=== PATIENT | female | born 1985 | race Caucasian/White ===

== ENCOUNTER 2017-05-05 18:55 | Observation (INO) | payer OTHER ==
[2017-05-05 22:11] LABS: ALT 30 U/L (7-52); Albumin 4.4 g/dL (3.2-5.2); Alkaline Phosphatase 101 U/L (34-104); BUN/Creatinine Ratio 11.5 (8-20); Blood Urea Nitrogen 7 mg/dL (6-24); CO2 Carbon Dioxide 16 mmol/L (22-32); Calcium 9.8 mg/dL (8.6-10.3); Chloride 105 mmol/L (101-111); EGFR African American 145.3 (>60); Globulin 4.5 g/dL (2-4); Glucose 92 mg/dL (70-100); Sodium 131 mmol/L (133-145); Total Protein 8.9 g/dL (6.4-8.9)
[2017-05-05 22:16] LABS: Anion Gap 10 mmol/L (2-11)
[2017-05-05 23:44] LABS: Hematocrit 42 % (35-47); Hemoglobin 14.2 g/dl (12.0-16.0); Mean Corpuscular HGB Conc 34 g/dl (31-36); Mean Corpuscular Hemoglobin 30 pg (27-31); Mean Corpuscular Volume 88 fL (80-97); Mean Platelet Volume 9 um3 (7.4-10.4); Red Cell Distribution Width 14 % (10.5-15); White Blood Count 13.6 10^3/ul (3.5-10.8)
[2017-05-06] MEDS ORDERED: Piperacillin/Tazobac ADVAN(*) 3.375 GM in NS 0.9% 100 ML* 100 ML IVPB ONE (00:19)
[2017-05-06] MEDS ORDERED: Ibuprofen TAB* 800 MG PO PRN (00:20)
[2017-05-06] MEDS ORDERED: Acetaminophen TAB* 325 MG PO PRN (00:20)
[2017-05-06] MEDS ORDERED: Nicotine Inhaler* 10 MG AMP INH PRN (00:27)
[2017-05-06] MEDS ORDERED: NS 0.9% 1000 ML* 1,000 ML IV SCH (00:30)
[2017-05-06] MEDS ORDERED: Vancomycin per Pharmacy* NOTE FOLLOW UP PRN (00:42)
[2017-05-06] MEDS ORDERED: Zosyn per Pharmacy* NOTE FOLLOW UP SCH (01:00)
[2017-05-06] MEDS ORDERED: Potassium Chlor TAB* 10 MEQ TAB.ER PO ONE (01:04)
[2017-05-06] MEDS ORDERED: Vancomycin(*) 1,250 MG in NS 0.9% 250 ML* 250 ML IVPB ONE (01:30)
--- NOTE | 2017-05-06 02:42 | HP ---
ADDENDUM NOW INCLUDED ON THIS REPORT CC: Dr. Salgado; Dr. Hussein * HISTORY AND PHYSICAL: DATE OF ADMISSION: 05/06/17 PRIMARY CARE PROVIDER: Dr. Salgado. CHIEF COMPLAINT: Left arm abscess. HISTORY OF PRESENT ILLNESS: Nelly Castellanos is a 32-year-old female with history of IV drug use who has been clean for several months now. She is on Suboxone daily program from one of the local step programs. She stated that she used cocaine ones 8 days ago and she developed an abscess. She has not been afebrile, but the abscess kept on to evolve and currently is very tender and painful for the patient. It is localized in the left antecubital fossa. The ultrasound was performed showed an abscess of approximately 4 cm in diameter. The surgeon was notified about the patient's admission from the ED. The patient is going to be admitted for incision and drainage of the abscess. PAST MEDICAL HISTORY: 1. History of drug use as mentioned above, currently on Suboxone. 2. History of degenerative disk disease and chronic lower back pain. 3. Status post cholecystectomy. 4. Tonsillectomy and adenoidectomy. 5. History of 3 C-sections and tubal ligation in the past. MEDICATIONS: Include: 1. Suboxone 24 mg daily. 2. Tizanidine 2 mg on a p.r.n. basis. ALLERGIES: No known drug allergies. FAMILY HISTORY: Positive for father who of heart attack at the age of 53 and mother who of uterine cancer at the age of 60. SOCIAL HISTORY: The patient smokes less than a pack a day. She denies any alcohol use. She used cocaine last 8 days ago. She is on Suboxone prescribed. She lives with her boyfriend, her niece, and niece's boyfriend. She stated that she has not been to seen Dr. Salgado her primary care provider within the past year because she was in [facility]. REVIEW OF SYSTEMS: Positive for severe pain in left antecubital fossa. All the remaining 12 systems were reviewed with the patient and were otherwise negative apart from the chronic problems with lower back pain. PHYSICAL EXAMINATION GENERAL: The patient is a very pleasant 32-year-old female who is in pain and crying during my evaluation due to the pain in the left arm. The patient otherwise is in no acute distress. She is alert, awake, and oriented x3. VITAL SIGNS: Blood pressure of 166/100, heart rate 89 and regular, respiratory rate 18, oxygen saturation 100% on room air, temperature 97.6. HEENT: Head: Atraumatic, normocephalic. Eyes: Pupils are equal, reactive to light and accommodation. Oropharynx clear. Mucosa moist. NECK: Supple. No JVD and no bruits bilaterally. RESPIRATORY: Clear to auscultation bilaterally. CARDIOVASCULAR: Regular rate and rhythm. No murmur. ABDOMEN: Soft and nontender. Bowel sounds are present in all 4 quadrants. EXTREMITIES: There is no edema in bilateral lower extremities. There is no clubbing or cyanosis. Pulses are +2 bilaterally. Left arm right above the antecubital fossa, the patient has an area of approximately 10 x 15 cm of fluctuation and localized abscess with mild surrounding erythema of cellulitis. NEURO EVALUATION: Speech clear. Cranial nerves II through XII grossly intact. Motor strength is 5/5 bilaterally. DIAGNOSTIC STUDIES/LAB DATA: White blood cell count of 13.6, hemoglobin of 14.2, hematocrit of 42, and platelets of 391. Sodium was 131, potassium 3.4, chloride 105, carbon dioxide 16, BUN 7, creatinine 0.6. Liver function tests were unremarkable. Soft tissue ultrasound of the left antecubital fossa, the preliminary report shows "complex fluid collection on the left antecubital fossa of 4.8 x 3.1 x 3.8 cm, lobulated margins. Hyperemia surrounding collection. Debris within the abscess." ASSESSMENT AND PLAN: 1. A 32-year-old female with history of IV drug use, presents with an abscess of the left antecubital fossa after cocaine use. The patient is going to be placed on vancomycin and Zosyn and await surgical treatment in the morning. The patient is also going to be placed on gentle intravenous hydration. 2. In regards to her history of chronic opioid use, the patient is going to be continued on Suboxone at 24 mg which she usually takes at home. 3. For DVT prophylaxis, the patient is going to be placed on heparin subcutaneously. 4. The patient's code status is full and her surrogate is her boyfriend whose name is Sal Belle, phone number is [phone]. TIME SPENT: Approximately 62 minutes were spent on admission of this patient, more than half of that time was spent [id number] with the patient during the interview and physical exam. ADDENDUM: Please note that the patient just recalled that she had an allergic reaction to PENICILLIN. Due to that, Zosyn is going to be discontinued and the patient is going to be placed on intravenous clindamycin. [id number]/CPS #: [id number]/CPS #: [id number] MTDCelestina
[2017-05-06] MEDS ORDERED: Piperacillin/Tazobac (*) 3.375 GM BAG IVPB ONE (02:45)
--- NOTE | 2017-05-06 02:50 | HP ---
HISTORY AND PHYSICAL: ADDENDUM: Please note that the patient just recalled that she had an allergic reaction to PENICILLIN. Due to that, Zosyn is going to be discontinued and the patient is going to be placed on intravenous clindamycin. [id number]/[facility] #: [id number] MTDD
[2017-05-06] MEDS: Buprenorphine/Naloxone 8-2 MG SL TAB* 1 TAB PO SCH ×3 (03:10→08:48)
[2017-05-06] MEDS: tiZANidine TAB* 2 MG PO PRN ×2 (03:12→10:28)
[2017-05-06 04:06] LABS: Hematocrit 41 % (35-47); Hemoglobin 13.8 g/dl (12.0-16.0); Mean Corpuscular HGB Conc 33 g/dl (31-36); Mean Corpuscular Hemoglobin 30 pg (27-31); Mean Corpuscular Volume 88 fL (80-97); Mean Platelet Volume 9 um3 (7.4-10.4); Red Blood Count 4.67 10^6/ul (4.0-5.4); Red Cell Distribution Width 14 % (10.5-15); White Blood Count 13.7 10^3/ul (3.5-10.8)
[2017-05-06] MEDS: Clindamycin 600 MG IVPREMIX(* 600 MG/50 ML SDV IV SCH ×2 (05:20→14:46)
[2017-05-06] MEDS ORDERED: Heparin VIAL(*) 5000 UNITS/ML VIAL (FIVE THOUSAND) SUBCUT SCH (06:00)
[2017-05-06 06:06] LABS: Urine Bacteria Absent (Absent); Urine Bilirubin Negative (Negative); Urine Glucose Negative (Negative); Urine Nitrite Negative (Negative)
[2017-05-06 06:27] LABS: Benzodiazepine Urine Screen None Detected (None Detect)
--- NOTE | 2017-05-06 08:21 | RAD ---
HISTORY: Left arm mass, pain, left antecubital fossa abscess COMPARISONS: None TECHNIQUE: Multiple transverse and longitudinal ultrasound images were obtained of the left optic fossa using grayscale and color Doppler imaging. FINDINGS: There is a complex loculated fluid collection with hypervascular margins measuring probably 4.8 x 3.1 x 3.8 cm in size. IMPRESSION: COMPLEX LOCULATED FLUID COLLECTION MEASURING UP TO 4.8 CM IN SIZE MOST CONSISTENT WITH ABSCESS.
[2017-05-06 08:45] VITALS: BP 135/85
[2017-05-06] MEDS ORDERED: Docusate CAP* 100 MG PO SCH (09:00)
--- NOTE | 2017-05-06 09:25 | CONSULT ---
Consult Consult: Surgery Consult Asked by Dr. Medina to evaluate pt. for consideration of I&D of forearm abscess. Ms. Castellanos is a 32 y.o. female who used IV drugs. About 9 days ago she noticed a sore area on her left arm that has gotten worse in the intervening week. She has had a similar problem in the past, but it drained spontaneously. PMHx: denies Meds: see med rec. All: tylenol, amoxicillin, zithromax, cefaclor etc. SH: pos. IVDA ROS: denies. PE: general: overweight female in NAD Vital Signs 05/05/17 05/06/17 05/06/17 19:04 01:10 01:12 Temperature 97.6 F Pulse Rate 89 94 Respiratory 18 Rate Blood Pressure 166/100 137/98 (mmHg) O2 Sat by Pulse 100 99 Oximetry 05/06/17 05/06/17 05/06/17 01:18 01:31 02:27 Temperature 98.8 F 98.1 F Pulse Rate 97 Respiratory 18 18 Rate Blood Pressure 149/99 (mmHg) O2 Sat by Pulse 100 Oximetry 05/06/17 05/06/17 05/06/17 03:14 05:49 07:36 Temperature 97.8 F Pulse Rate 88 Respiratory 18 16 15 Rate Blood Pressure 135/85 (mmHg) O2 Sat by Pulse 97 Oximetry 05/06/17 08:48 Temperature Pulse Rate Respiratory 16 Rate Blood Pressure (mmHg) O2 Sat by Pulse Oximetry Left arm has an erythematous, tender, firm area superior to the antecubital fossa. There is a central whitish area of about 1 cm which is fluctuant. Laboratory Results - last 24 hr 05/05/17 05/05/17 05/05/17 21:45 23:25 23:25 WBC 13.6 H RBC 4.80 Hgb 14.2 Hct 42 MCV 88 MCH 30 MCHC 34 RDW 14 Plt Count 391 MPV 9 Neut % (Auto) 58.8 Lymph % (Auto) 32.4 Barron % (Auto) 4.2 Eos % (Auto) 3.6 Baso % (Auto) 1.0 Absolute Neuts (auto) 8.0 H Absolute Lymphs (auto) 4.4 Absolute Monos (auto) 0.6 Absolute Eos (auto) 0.5 Absolute Basos (auto) 0.1 Absolute Nucleated RBC 0.01 Nucleated RBC % 0.1 Sodium 131 L Potassium TNP 3.4 L Chloride 105 Carbon Dioxide 16 L Anion Gap 10 BUN 7 Creatinine 0.61 Est GFR ( Amer) 145.3 Est GFR (Non-Af Amer) 113.0 BUN/Creatinine Ratio 11.5 Glucose 92 Calcium 9.8 Total Bilirubin 0.60 AST TNP 17 ALT 30 Alkaline Phosphatase 101 Total Protein 8.9 Albumin 4.4 Globulin 4.5 H Albumin/Globulin Ratio 1.0 Urine Color Urine Appearance Urine pH Ur Specific Leonard Urine Protein Urine Ketones Urine Blood Urine Nitrate Urine Bilirubin Urine Urobilinogen Ur Leukocyte Esterase Urine WBC (Auto) Urine RBC (Auto) Ur Squamous Epith Cells Urine Bacteria Urine Glucose Urine Opiates Screen Ur Barbiturates Screen Ur Phencyclidine Scrn Ur Amphetamines Screen U Benzodiazepines Scrn Urine Cocaine Screen U Cannabinoids Screen 05/06/17 05/06/17 05/06/17 03:45 05:45 05:45 WBC 13.7 H RBC 4.67 Hgb 13.8 Hct 41 MCV 88 MCH 30 MCHC 33 RDW 14 Plt Count 378 MPV 9 Neut % (Auto) 63.0 Lymph % (Auto) 26.4 Barron % (Auto) 5.2 Eos % (Auto) 3.9 Baso % (Auto) 1.5 Absolute Neuts (auto) 8.7 H Absolute Lymphs (auto) 3.6 Absolute Monos (auto) 0.7 Absolute Eos (auto) 0.5 Absolute Basos (auto) 0.2 Absolute Nucleated RBC 0 Nucleated RBC % 0 Sodium Potassium Chloride Carbon Dioxide Anion Gap BUN Creatinine Est GFR ( Amer) Est GFR (Non-Af Amer) BUN/Creatinine Ratio Glucose Calcium Total Bilirubin AST ALT Alkaline Phosphatase Total Protein Albumin Globulin Albumin/Globulin Ratio Urine Color Yellow Urine Appearance Clear Urine pH 5.0 Ur Specific Leonard 1.027 Urine Protein 1+(30 mg/dl) H Urine Ketones Trace H Urine Blood 2+ H Urine Nitrate Negative Urine Bilirubin Negative Urine Urobilinogen Negative Ur Leukocyte Esterase Negative Urine WBC (Auto) Trace(0-5/hpf) Urine RBC (Auto) Trace(0-2/hpf) Ur Squamous Epith Cells Present H Urine Bacteria Absent Urine Glucose Negative Urine Opiates Screen None detected Ur Barbiturates Screen None detected Ur Phencyclidine Scrn None detected Ur Amphetamines Screen Presumptive positive H U Benzodiazepines Scrn None detected Urine Cocaine Screen None detected U Cannabinoids Screen None detected Sono show a collection below the skin A/P: Abscess of left arm; will plan I&D when supplies gathered. Philippe
[2017-05-06] MEDS ORDERED: Ketorolac INJ* 30 MG/ML 1 ML VIAL IV PUSH PRN (11:19)
--- NOTE | 2017-05-06 11:28 | PN ---
Subjective Date of Service: 05/06/17 Interval History: Patient seen and examined. Appears restless, reluctant to make eye contact. Denies fever or chills, denies chest pain. States pain in LUE is severe. Awaiting I&D with Dr. Hussein this afternoon. Offered toradol for pain, as patient is allergic to tylenol and she stated "ibuprofen makes my liver hurt". Explained that her liver function tests appear to be in normal range and that one dose of toradol should not be an issue. Objective Active Medications: Acetaminophen (Tylenol Tab*) 650 mg PO Q4H PRN PRN Reason: FEVER/PAIN Buprenorphine/Naloxone (Suboxone 8-2 Mg Sl Tab*) 3 tab.sl PO DAILY [facility] Last Admin: 05/06/17 08:48 Dose: 2 tab.sl Docusate Sodium (Colace Cap*) 100 mg PO BID [facility] Last Admin: 05/06/17 08:48 Dose: Not Given Clindamycin HCl/Dextrose (Cleocin 600 Mg Ivpremix(*) Sdv) 600 mg in 50 mls @ 100 mls/hr IV Q8H [facility] Last Admin: 05/06/17 05:20 Dose: 100 mls/hr Vancomycin HCl 1,250 mg/ (Sodium Chloride) 250 mls @ 166.667 mls/hr IVPB Q8H [facility] Ibuprofen (Motrin Tab*) 800 mg PO Q8H PRN PRN Reason: PAIN Last Admin: 05/06/17 03:11 Dose: 800 mg Ketorolac Tromethamine (Toradol Inj*) 30 mg IV PUSH Q6H PRN PRN Reason: PAIN Nicotine (Nicotine Inhaler*) 10 mg INH Q2H PRN PRN Reason: CRAVING Pharmacy Consult (Vancomycin Per Pharmacy*) 1 note FOLLOW UP . PRN PRN Reason: PER PROTOCOL Pharmacy Profile Note (Vancomycin Trough Check) 1 note FOLLOW UP 1100 ONE Stop: 05/07/17 11:01 Tizanidine HCl (Zanaflex Tab*) 2 mg PO Q8H PRN PRN Reason: SPASMS Last Admin: 05/06/17 10:28 Dose: 2 mg Vital Signs - 8 hr 05/06/17 05/06/17 05/06/17 05:49 07:36 08:00 Temperature 97.8 F Pulse Rate 88 Respiratory 16 15 16 Rate Blood Pressure 135/85 (mmHg) O2 Sat by Pulse 97 Oximetry 05/06/17 08:48 Temperature Pulse Rate Respiratory 16 Rate Blood Pressure (mmHg) O2 Sat by Pulse Oximetry Oxygen Devices in Use Now: None Result Diagrams: 05/06/17 03:45 05/05/17 23:25 Assess/Plan/Problems-Billing Assessment: - Patient Problems (1) Abscess of left upper extremity Code(s): L02.414 - CUTANEOUS ABSCESS OF LEFT UPPER LIMB SNOMED Code(s): 131725430 Comment: - Loculated 4.8cm collection with surrounding cellulitis in the left AC fossa 2 /2 injection of cocaine 8 days ago - IV clindamycin - received vanco and zosyn last night - Scheduled for I&D this afternoon with Dr. Hussein - Follow blood cultures - Trend temps, currently afebrile - Toradol for pain (2) Polysubstance (including opioids) dependence with physiological dependence Code(s): F19.20 - OTHER PSYCHOACTIVE SUBSTANCE DEPENDENCE, UNCOMPLICATED SNOMED Code(s): 30981966 Comment: - On subxone 3 tabs daily for former IV drug use - Actively injected cocaine this week - Recommend continued rehab (3) Hypertension Code(s): I10 - ESSENTIAL (PRIMARY) HYPERTENSION SNOMED Code(s): 80019963 Comment: - DBP >100 at admission - Unclear etiology, pain vs. infection vs cocaine use? - Will obtain EKG prior to procedure this afternoon - If any changes on EKG, will obtain cardiac ECHO (4) Leukocytosis Code(s): D72.829 - ELEVATED WHITE BLOOD CELL COUNT, UNSPECIFIED SNOMED Code(s) : 175357361 Comment: - 2/2 arm abcess - Trend WBC's - Follow cultures - Monitor temps Status and Disposition: Will await results of I&D. If surgery feels continued IV atbx are waranted vs. PO, then will determine need for further hospital stay. Counseling and/or Coordination of Care Minutes: Coordinated with patient and primary RN.
[2017-05-06] MEDS ORDERED: VANCOMYCIN IVPB SCH ×2 (11:30)
--- NOTE | 2017-05-06 12:31 | PN ---
Progress Note - Progress Note Date of Service: 05/06/17 Note: Procedure Note Under sterile conditions, using 1% Lidocaine, I&D of the left forearm abscess was done without difficulty. ~10-15 cc of purulent fluid extruded. The wound was irrigated with saline and packed with 1/2 inch iodoform packing strip. She tolerated the procedure well. She should have the packing changed qOD and f/u as outpt. upon discharge. CLFoster
[2017-05-07] MEDS ORDERED: Vancomycin Trough Check NOTE FOLLOW UP ONE (11:00)
--- NOTE | 2017-05-09 05:11 | DS ---
CC: Dr. Salgado * DISCHARGE SUMMARY: DATE OF ADMISSION: 05/06/17 DATE OF DISCHARGE: 05/06/17 PRIMARY CARE PROVIDER: Dr. Salgado. ATTENDING PROVIDER AT ADMISSION: Dr. Ryan * (DICTATED BY TADEO AGRAWAL NP) HOSPITAL COURSE: This is a 32-year-old female patient with a longstanding history of IV drug abuse who was on Suboxone program; however, 8 days prior to her admission states that she injected cocaine into her left upper extremity, subsequently had a red erythematous hard lump in the arm with a fluctuant center. She came to the hospital to be evaluated. It turned out to be an abscess for which she required IV antibiotics and incision and drainage procedure. She was seen by Dr. Hussein on 05/06/17. She underwent an I and D at the bedside for which purulent drainage was taken out. She was on IV clindamycin. The patient then refused to stay for the rest of her admission after her procedure was done and signed out against medical advice. She was given a prescription for p.o. clindamycin 300 mg 3 times a day and told to follow up with Dr. Hussein in the office. The patient verbalized understanding that leaving the hospital could result in , decompensation, endocarditis and other further complications of her arm and abscess and infection. She stated her understanding and still desired to sign out against medical advice. TADEO AGRAWAL NP [id number]/[facility] #: [id number] [facility] + HOSPITALSCelestina
== END 2017-05-06 19:00 | disposition left against medical advice (07) ==
LOC: ED 18:55 → MED 05-06 00:58
PROVIDERS: ADMIT Internal Medicine; ATTEND Internal Medicine
DX: L02.413 Cutaneous abscess of right upper limb (principal); F19.20 Other psychoactive substance dependence, uncomplicated; Z53.21 Procedure and treatment not carried out due to patient leaving prior to being seen by health care provider; F17.200 Nicotine dependence, unspecified, uncomplicated
CPT/HCPCS: 36415; 80053; 80307; 81003; 81015; 85025; 87040; 87070; 87077; 87186; 87205; 93005; 96361; 96365; 99284; A9270-GY; G0378; J1644; J1885; J2543; J3370

== ENCOUNTER 2017-06-04 13:26 | Emergency (ER) | payer OTHER ==
[2017-06-04 15:13] LABS: ABS Basophils 0.1 10^3/ul (0-0.2); ABS Eosinophils 0.2 10^3/ul (0-0.6); ABS Lymphocytes 2.5 10^3/ul (1.0-4.8); ABS Neutrophils 9.3 10^3/ul (1.5-7.7); ABS Nucleated RBC 0 10^3/ul; Eosinophil % 1.8 % (0-6); Hematocrit 37 % (35-47); Hemoglobin 12.5 g/dl (12.0-16.0); Mean Corpuscular HGB Conc 34 g/dl (31-36); Mean Corpuscular Hemoglobin 29 pg (27-31); Mean Corpuscular Volume 86 fL (80-97); Mean Platelet Volume 9 um3 (7.4-10.4); Nucleated Red Blood Cells % 0; Platelet Count 256 10^3/ul (150-450); Red Blood Count 4.29 10^6/ul (4.0-5.4); Red Cell Distribution Width 14 % (10.5-15); White Blood Count 13.1 10^3/ul (3.5-10.8)
--- NOTE | 2017-06-04 15:16 | RAD ---
HISTORY: Pelvic pain COMPARISONS: None VIEWS: Frontal views of the abdomen. FINDINGS: BOWEL: There is a nonspecific bowel gas pattern, with nondilated small bowel gas noted. There is a large amount of stool within the colon. CALCULI: There are no abnormal calculi. BONES AND SOFT TISSUES: There are no osseous abnormalities. OTHER FINDINGS: The lung bases are clear. There is no subphrenic gas. Surgical clips are noted consistent with previous cholecystectomy and bilateral tubal ligation. IMPRESSION: NONSPECIFIC BOWEL GAS PATTERN. LARGE AMOUNT OF STOOL WITHIN THE COLON.
[2017-06-04 15:20] LABS: Urine Appearance Cloudy; Urine Blood 1+ (Negative); Urine Color Yellow; Urine Ketones Negative (Negative); Urine Protein Negative (Negative); Urine Specific Gravity 1.015 (1.010-1.030); Urine Urobilinogen Negative (Negative)
[2017-06-04 15:34] LABS: EGFR Non-African American 96.4 (>60)
[2017-06-04] MEDS ORDERED: NS 0.9% 1000 ML* 1,000 ML IV ONE (15:45)
[2017-06-04] MEDS ORDERED: Ketorolac INJ* 60 MG/2 ML VIAL IM ONE (16:15)
[2017-06-04] MEDS ORDERED: Sulfamethox/Trimethoprim DS 800/160* TAB PO ONE (16:15)
--- NOTE | 2017-06-04 16:22 | ED ---
GI/ HPI - HPI Summary HPI Summary: 32 female presents to ED with complaints of right flank pain and urinary urgency that have been ongoing for 1 week. Patient also states she has noticed blood in her urine. Has had a history of kidney stones and she is afraid that is what she has. Denies known fever/chills. Right flank pain radiates into RLQ abdomen at times. Normal bowel movements. Has been drinking water. Has not taken anything for the pain. Denies any other symptoms. Denies vaginal discharge , vaginal itching and odor. PMHx includes cholecystectomy and asthma. - History of Current Complaint Chief Complaint: EDFlankPain Time Seen by Provider: 06/04/17 14:34 Stated Complaint: PELVIC PAIN Hx Obtained From: Patient Onset/Duration: Started Weeks Ago - 1 Timing: Constant Severity: Moderate Current Severity: Moderate Pain Intensity: 9 Location of Pain: Flank - right Pain Characteristics: Sharp, Colicy, Aching, Burning Pain Radiates to: RLQ Associated Signs and Symptoms: Positive: Nausea, Flank Pain, UTI Symptoms Aggravating Factor(s): Voiding, Movement, Urination Alleviating Factor(s): Nothing - Additional Pertinent History Primary Care Physician: [id number] - Allergy/Home Medications Allergies/Adverse Reactions: Allergies Allergy/AdvReac Type Severity Reaction Status Date / Time Amoxicillin Allergy Hives Verified 06/04/17 14:31 Azithromycin Allergy Hives Verified 06/04/17 14:31 Cefaclor [From Ceclor] Allergy Hives Verified 06/04/17 14:31 Clarithromycin [From Biaxin] Allergy Hives Verified 06/04/17 14:31 Codeine Allergy Hallucinati Verified 06/04/17 14:31 ons Doxycycline Allergy Hives Verified 06/04/17 14:31 Levofloxacin [From Levaquin] Allergy Hives Verified 06/04/17 14:31 Penicillins [PCN] Allergy Hives Verified 06/04/17 14:31 Tramadol Allergy Hives Verified 06/04/17 14:31 Acetaminophen [From Tylenol] AdvReac See Comment Verified 06/04/17 14:31 PMH/Surg Hx/FS Hx/Imm Hx Endocrine/Hematology History: Denies: Hx Diabetes Cardiovascular History: Denies: Hx Atrial Fibrillation, Hx Congestive Heart Failure, Hx Hypertension , Hx Myocardial Infarction Respiratory History: Denies: Hx Asthma History: Reports: 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, NO INTERVENTION Denies: Hx Acute Renal Failure, Hx Dialysis Musculoskeletal History: Reports: Other Musculoskeletal History - DDD Denies: Hx Arthritis Sensory History: Reports: Hx Contacts or Glasses Denies: Hx Hearing Aid Opthamlomology History: Reports: Hx Contacts or Glasses - Surgical History Surgery Procedure, Year, and Place: n/a - Immunization History Immunizations Up to Date: Yes Infectious Disease History: No Infectious Disease History: Denies: Traveled Outside the [place] in Last 30 Days - Family History Known Family History: Negative: Cardiac Disease, Hypertension, Diabetes, Renal Disease, Respiratory Disease - Social History Alcohol Use: None Hx Substance Use: Yes Substance Use Type: Reports: Cocaine, Other Substance Use Comment - Amount & Last Used: pt states "No" Smoking Status (MU): Light Every Day Tobacco Smoker Review of Systems Constitutional: Negative Cardiovascular: Negative Respiratory: Negative Positive: Abdominal Pain, Nausea Positive: burning, dysuria, flank pain - r Neurological: Negative All Other Systems Reviewed And Are Negative: Yes Physical Exam Triage Information Reviewed: Yes Vital Signs On Initial Exam: Initial Vitals Temp Pulse Resp BP Pulse Ox 97.4 F 123 20 144/96 99 06/04/17 13:27 06/04/17 13:27 06/04/17 13:27 06/04/17 13:27 06/04/17 13:27 vitals improved HR: 94bpm BP 124/86 Vital Signs Reviewed: Yes Appearance: Positive: Well-Appearing, Well-Nourished, Pain Distress - moderate Skin: Positive: Warm, Skin Color Reflects Adequate Perfusion, Dry. Negative: Cold, Numb, Cyanosis @, Pale, Erythema @ Head/Face: Positive: Normal Head/Face Inspection Neck: Positive: Supple, Nontender, No Lymphadenopathy Respiratory/Lung Sounds: Positive: Clear to Auscultation, Breath Sounds Present. Negative: Rales, Rhonchi, Wheezes Cardiovascular: Positive: Normal, RRR, Pulses are Symmetrical in both Upper and Lower Extremities, Tachycardia Abdomen Description: Positive: No Organomegaly, Soft, CVA Tenderness (R), Other : - tender of lower abdomen, mild on palpation. Negative: Bruit, Distended, Guarding Bowel Sounds: Positive: Present Pelvic Exam: Positive: external exam normal - per patient, refused exam Musculoskeletal: Positive: Normal, Strength/ROM Intact Neurological: Positive: Normal, Sensory/Motor Intact, Alert, Oriented to Person Place, Time, CN Intact II-III, Reflexes Intact, NV Bundle Intact Distally, Normal Gait - Mich Coma Scale Coma Scale Total: 15 Diagnostics - Vital Signs Vital Signs Temp Pulse Resp BP Pulse Ox 06/04/17 14:40 125 97 06/04/17 14:38 143/97 06/04/17 13:27 97.4 F 123 20 144/96 99 - Laboratory Lab Results: Lab Results 06/04/17 06/04/17 06/04/17 Range/Units 14:37 15:06 15:06 WBC 13.1 H (3.5-10.8) 10^3/ul RBC 4.29 (4.0-5.4) 10^6/ul Hgb 12.5 (12.0-16.0) g/dl Hct 37 (35-47) % MCV 86 (80-97) fL MCH 29 (27-31) pg MCHC 34 (31-36) g/dl RDW 14 (10.5-15) % Plt Count 256 (150-450) 10^3/ul MPV 9 (7.4-10.4) um3 Neut % (Auto) 70.9 (38-83) % Lymph % (Auto) 19.0 L (25-47) % [place] % (Auto) 7.4 (1-9) % Eos % (Auto) 1.8 (0-6) % Baso % (Auto) 0.9 (0-2) % Absolute Neuts (auto) 9.3 H (1.5-7.7) 10^3/ul Absolute Lymphs (auto) 2.5 (1.0-4.8) 10^3/ul Absolute Monos (auto) 1.0 H (0-0.8) 10^3/ul Absolute Eos (auto) 0.2 (0-0.6) 10^3/ul Absolute Basos (auto) 0.1 (0-0.2) 10^3/ul Absolute Nucleated RBC 0 10^3/ul Nucleated RBC % 0 Sodium 133 (133-145) mmol/L Potassium 3.8 (3.5-5.0) mmol/L Chloride 104 (101-111) mmol/L Carbon Dioxide 20 L (22-32) mmol/L Anion Gap 9 (2-11) mmol/L BUN 8 (6-24) mg/dL Creatinine 0.70 (0.51-0.95) mg/dL Est GFR ( Amer) 123.9 (>60) Est GFR (Non-Af Amer) 96.4 (>60) BUN/Creatinine Ratio 11.4 (8-20) Glucose 115 H (70-100) mg/dL Lactic Acid (0.5-2.0) mmol/L Calcium 9.0 (8.6-10.3) mg/dL Total Bilirubin 1.00 (0.2-1.0) mg/dL AST 52 H (13-39) U/L ALT 76 H (7-52) U/L Alkaline Phosphatase 135 H (34-104) U/L Total Protein 7.3 (6.4-8.9) g/dL Albumin 3.6 (3.2-5.2) g/dL Globulin 3.7 (2-4) g/dL Albumin/Globulin Ratio 1.0 (1-3) Urine Color Yellow Urine Appearance Cloudy Urine pH 5.0 (5-9) Ur Specific [place] 1.015 (1.010-1.030) Urine Protein Negative (Negative) Urine Ketones Negative (Negative) Urine Blood 1+ H (Negative) Urine Nitrate Positive H (Negative) Urine Bilirubin Negative (Negative) Urine Urobilinogen Negative (Negative) Ur Leukocyte Esterase 3+ H (Negative) Urine WBC (Auto) 3+(>20/hpf) H (Absent) Urine RBC (Auto) 1+(3-5/hpf) H (Absent) Ur Squamous Epith Cells Present H (Absent) Urine Bacteria 1+ H (Absent) Urine Glucose Negative (Negative) 06/04/17 Range/Units 15:06 WBC (3.5-10.8) 10^3/ul RBC (4.0-5.4) 10^6/ul Hgb (12.0-16.0) g/dl Hct (35-47) % MCV (80-97) fL MCH (27-31) pg MCHC (31-36) g/dl RDW (10.5-15) % Plt Count (150-450) 10^3/ul MPV (7.4-10.4) um3 Neut % (Auto) (38-83) % Lymph % (Auto) (25-47) % [place] % (Auto) (1-9) % Eos % (Auto) (0-6) % Baso % (Auto) (0-2) % Absolute Neuts (auto) (1.5-7.7) 10^3/ul Absolute Lymphs (auto) (1.0-4.8) 10^3/ul Absolute Monos (auto) (0-0.8) 10^3/ul Absolute Eos (auto) (0-0.6) 10^3/ul Absolute Basos (auto) (0-0.2) 10^3/ul Absolute Nucleated RBC 10^3/ul Nucleated RBC % Sodium (133-145) mmol/L Potassium (3.5-5.0) mmol/L Chloride (101-111) mmol/L Carbon Dioxide (22-32) mmol/L Anion Gap (2-11) mmol/L BUN (6-24) mg/dL Creatinine (0.51-0.95) mg/dL Est GFR ( Amer) (>60) Est GFR (Non-Af Amer) (>60) BUN/Creatinine Ratio (8-20) Glucose (70-100) mg/dL Lactic Acid 0.8 (0.5-2.0) mmol/L Calcium (8.6-10.3) mg/dL Total Bilirubin (0.2-1.0) mg/dL AST (13-39) U/L ALT (7-52) U/L Alkaline Phosphatase (34-104) U/L Total Protein (6.4-8.9) g/dL Albumin (3.2-5.2) g/dL Globulin (2-4) g/dL Albumin/Globulin Ratio (1-3) Urine Color Urine Appearance Urine pH (5-9) Ur Specific [place] (1.010-1.030) Urine Protein (Negative) Urine Ketones (Negative) Urine Blood (Negative) Urine Nitrate (Negative) Urine Bilirubin (Negative) Urine Urobilinogen (Negative) Ur Leukocyte Esterase (Negative) Urine WBC (Auto) (Absent) Urine RBC (Auto) (Absent) Ur Squamous Epith Cells (Absent) Urine Bacteria (Absent) Urine Glucose (Negative) Result Diagrams: 06/04/17 15:06 06/04/17 15:06 Lab Statement: Any lab studies that have been ordered have been reviewed, and results considered in the medical decision making process. - Radiology KUB Xray Interpretation: Positive (See Comments) - NONSPECIFIC BOWEL GAS PATTERN. LARGE AMOUNT OF STOOL WITHIN THE COLON. Radiology Interpretation Completed By: Radiologist JAY JAY Course/Dx - Course Course Of Treatment: attempted to start IV and give fluids however after multiple attempts patient refused, stated she would continue drinking plenty of fluids. labs obtained and showed slightly elevated WBC. patient has chronicaly elevated liver enzymes. Urinalysis obtained and showed infection. Due labs, urinaysis and physical exam findings/symptoms appears to be suffering from a pyelonephritis/UTI. Xray obtained and negative for renal calculi. Patient is afebrile, normal vitals after patient was not being stuck with needles and calmed down from be angry. No concern for sepsis at this time. Follow up with PCP. Aware of worsening signs and symptoms. No nausea/vomiting. Increase fluid intake. Given toradol for pain, continue ibuprofen at home starting tomorrow. Bactrim to treat as it is one of the only antibiotics she is able to take and not allergic to. No other concerns at this time. Patient agreed and understood. Will wait for pending culture results to check susceptibility. - Diagnoses Differential Diagnoses - Female: Pyelonephritis, Renal Calculi, Urinary Tract Infection, Ureteral Calculi Provider Diagnoses: Pyelonephritis, UTI (urinary tract infection) Discharge - Discharge Plan Condition: Stable Disposition: HOME Prescriptions: Sulfamethox/Trimethoprim DS* [Bactrim DS 800/160 TAB*] 1 tab PO BID #13 tab Patient Education Materials: Urinary Tract Infection in Women (ED), Kidney Infection (ED) Referrals: No Primary Care Phys,NOPCP [Primary Care Provider] - Additional Instructions: Take prescribed medication as directed. Increase fluid intake. Continue ibuprofen as needed for pain. Good hygiene. Any new or worsening symptoms please seek medical attention promptly, as discussed (high fever, worsening pain/symptoms, vomiting). Follow up with PCP.
[2017-06-04 17:02] VITALS: BP 124/86
--- NOTE | 2017-06-06 08:32 | ED ---
Progress - Progress Note Progress Note: Pt's prelim urine cx reveals >100,000 e. coli. She was started on bactrim. No change in tx at this time. Course/Dx - Course Course Of Treatment: attempted to start IV and give fluids however after multiple attempts patient refused, stated she would continue drinking plenty of fluids. labs obtained and showed slightly elevated WBC. patient has chronicaly elevated liver enzymes. Urinalysis obtained and showed infection. Due labs, urinaysis and physical exam findings/symptoms appears to be suffering from a pyelonephritis/UTI. Xray obtained and negative for renal calculi. Patient is afebrile, normal vitals after patient was not being stuck with needles and calmed down from be angry. No concern for sepsis at this time. Follow up with PCP. Aware of worsening signs and symptoms. No nausea/vomiting. Increase fluid intake. Given toradol for pain, continue ibuprofen at home starting tomorrow. Bactrim to treat as it is one of the only antibiotics she is able to take and not allergic to. No other concerns at this time. Patient agreed and understood. Will wait for pending culture results to check susceptibility. - Diagnoses Provider Diagnoses: Pyelonephritis, UTI (urinary tract infection)
== END 2017-06-04 17:04 | disposition home or self-care (01) ==
LOC: ED 13:26
DX: N12 Tubulo-interstitial nephritis, not specified as acute or chronic (principal); N39.0 Urinary tract infection, site not specified; B96.20 Unspecified Escherichia coli [E. coli] as the cause of diseases classified elsewhere; F17.200 Nicotine dependence, unspecified, uncomplicated; Z88.6 Allergy status to analgesic agent; Z88.3 Allergy status to other anti-infective agents; Z88.5 Allergy status to narcotic agent; Z88.0 Allergy status to penicillin
CPT/HCPCS: 36415; 74018; 80053; 81003; 81015; 83605; 85025; 87077; 87086; 87186; 96374; 99282; A9270-GY; J1885

== ENCOUNTER 2017-10-10 21:27 | Observation (INO) | payer MEDICAID, OTHER ==
[2017-10-10] MEDS ORDERED: Clindamycin 900 MG IVPREMIX(* 900 MG/50 ML SDV IV ONE (22:08)
[2017-10-10 23:00] LABS: Hematocrit 37 % (35-47); Mean Corpuscular HGB Conc 33 g/dl (31-36); Mean Corpuscular Hemoglobin 30 pg (27-31); Mean Corpuscular Volume 90 fL (80-97); Mean Platelet Volume 9.1 um3 (7.4-10.4); Platelet Count 323 10^3/ul (150-450); Red Blood Count 4.05 10^6/ul (4.0-5.4); Red Cell Distribution Width 15 % (10.5-15); White Blood Count 12.2 10^3/ul (3.5-10.8)
[2017-10-10 23:07] LABS: ABS Basophils 0.1 10^3/ul (0-0.2); ABS Eosinophils 0.4 10^3/ul (0-0.6); ABS Lymphocytes 3.3 10^3/ul (1.0-4.8); ABS Monocytes 0.8 10^3/ul (0-0.8); ABS Neutrophils 7.6 10^3/ul (1.5-7.7); ABS Nucleated RBC 0 10^3/ul; Eosinophil % 3.4 % (0-6); Lymphocyte % 27.2 % (25-47); Nucleated Red Blood Cells % 0.1
[2017-10-10 23:17] LABS: EGFR Non-African American 138.9 (>60)
[2017-10-10] MEDS ORDERED: Ketorolac INJ* 30 MG/ML 1 ML VIAL IV PUSH ONE (23:18)
[2017-10-10] MEDS ORDERED: PROCHLORPERAZINE INJ 5 MG/ML 2 ML VIAL IV PRN (23:49)
[2017-10-10] MEDS ORDERED: Cyclobenzaprine TAB* 10 MG PO PRN (23:50)
--- NOTE | 2017-10-10 23:58 | ED ---
Nirmal Holley Jennifer, scribed for Evin Breen MD on 10/10/17 at 2200 . Skin Complaint - HPI Summary HPI Summary: The patient is a 32 year old female who presents with two red abscesses to left arm since last week. The patient states it began last week when she saw the doctor. They were trying to do bloodwork and kept trying to put an IV in, but it kept slipping out. Since then, two red abscesses have formed and worsened. Patient additionally complains of fever. The patient reports she is a recovering heroin addict and has been hospitalized for this before. - History of Current Complaint Chief Complaint: EDRashSkinAbscess Time Seen by Provider: 10/10/17 21:52 Stated Complaint: POSSIBLE INFECTION/FEVER Hx Obtained From: Patient Onset/Duration: Started Weeks Ago - one week, Still Present, Worse Since Skin Exposure Onset/Duration: Weeks Ago - one week Timing: Constant Onset Severity: Moderate Current Severity: Severe Pain Intensity: 8 Pain Scale Used: 0-10 Numeric Skin Location: Arm - left, Hand - left Character: Redness, Raised, Painful Aggravating Symptom(s): Nothing Alleviating Symptom(s): Nothing - Additional Pertinent History Primary Care Physician: [id number] - Allergy/Home Medications Allergies/Adverse Reactions: Allergies Allergy/AdvReac Type Severity Reaction Status Date / Time acetaminophen [From Tylenol] Allergy Hives Verified 10/10/17 21:50 amoxicillin Allergy Hives Verified 10/10/17 21:47 azithromycin Allergy Hives Verified 10/10/17 21:47 cefaclor [From Ceclor] Allergy Hives Verified 10/10/17 21:48 clarithromycin [From Biaxin] Allergy Hives Verified 10/10/17 21:48 codeine Allergy Hallucinati Verified 10/10/17 21:48 ons doxycycline Allergy Hives Verified 10/10/17 21:48 levofloxacin Allergy Hives Verified 10/10/17 21:49 Penicillins Allergy Hives Verified 10/10/17 21:49 tramadol Allergy Hives Verified 10/10/17 21:50 PMH/Surg Hx/FS Hx/Imm Hx Endocrine/Hematology History: Denies: Hx Diabetes Cardiovascular History: Denies: Hx Atrial Fibrillation, Hx Congestive Heart Failure, Hx Hypertension , Hx Myocardial Infarction Respiratory History: Denies: Hx Asthma History: Reports: 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, NO INTERVENTION Denies: Hx Acute Renal Failure, Hx Dialysis Musculoskeletal History: Reports: Other Musculoskeletal History - DDD Denies: Hx Arthritis Sensory History: Reports: Hx Contacts or Glasses Denies: Hx Hearing Aid Opthamlomology History: Reports: Hx Contacts or Glasses - Surgical History Surgery Procedure, Year, and Place: n/a Infectious Disease History: No Infectious Disease History: Denies: Hx Hepatitis, Traveled Outside the [place] in Last 30 Days - Family History Known Family History: Negative: Cardiac Disease, Hypertension, Diabetes, Renal Disease, Respiratory Disease - Social History Alcohol Use: None Hx Substance Use: Yes Substance Use Type: Reports: Cocaine, Heroin Substance Use Comment - Amount & Last Used: Last used heroin two weeks ago Hx Tobacco Use: Yes Smoking Status (MU): Light Every Day Tobacco Smoker Review of Systems Positive: Fever Positive: Other - Red abscess on left forearm and hand All Other Systems Reviewed And Are Negative: Yes Physical Exam - Summary Physical Exam Summary: Appearance: Well appearing, no pain distress Skin: warm, dry, reflects adequate perfusion Head/face: multiple excoriations of hair and line Eyes: EOMI, ANGELIQUE ENT: normal Neck: supple, non-tender Respiratory: CTA, breath sounds present Cardiovascular: RRR, pulses symmetrical Abdomen: non-tender, soft Bowel Sounds: present Extremities: tissue edema with no definite drainable, area of edema in dorsal hand at base of long and ring fingers with cobblestoning on the ultrasound. 8cm x 5cm area in left AC with cobblestoning. Multiple areas of needle injury. Big area of cellulitis on left forearm Musculoskeletal: normal, strength/ROM intact Neuro: normal, sensory motor intact, A&Ox3 Triage Information Reviewed: Yes Vital Signs On Initial Exam: Initial Vitals Temp Pulse Resp BP Pulse Ox 97.4 F 105 16 117/78 99 10/10/17 21:45 10/10/17 21:45 10/10/17 21:45 10/10/17 21:45 10/10/17 21:45 Vital Signs Reviewed: Yes Procedures - Incision and Drainage Site: Incision in indurated area approx 1.5 cm across. Small amount purulence Anesthesia: Lidocaine - 2 cc 1% Lidocaine Packing: Gauze Diagnostics - Vital Signs Vital Signs Temp Pulse Resp BP Pulse Ox 10/10/17 21:45 97.4 F 105 16 117/78 99 - Laboratory Lab Results: Lab Results 10/10/17 10/10/17 10/10/17 Range/Units 22:33 22:33 22:33 WBC 12.2 H (3.5-10.8) 10^3/ul RBC 4.05 (4.0-5.4) 10^6/ul Hgb 12.0 (12.0-16.0) g/dl Hct 37 (35-47) % MCV 90 (80-97) fL MCH 30 (27-31) pg MCHC 33 (31-36) g/dl RDW 15 (10.5-15) % Plt Count 323 (150-450) 10^3/ul MPV 9.1 (7.4-10.4) um3 Neut % (Auto) 61.8 (38-83) % Lymph % (Auto) 27.2 (25-47) % [place] % (Auto) 6.6 (0-7) % Eos % (Auto) 3.4 (0-6) % Baso % (Auto) 1.0 (0-2) % Absolute Neuts (auto) 7.6 (1.5-7.7) 10^3/ul Absolute Lymphs (auto) 3.3 (1.0-4.8) 10^3/ul Absolute Monos (auto) 0.8 (0-0.8) 10^3/ul Absolute Eos (auto) 0.4 (0-0.6) 10^3/ul Absolute Basos (auto) 0.1 (0-0.2) 10^3/ul Absolute Nucleated RBC 0 10^3/ul Nucleated RBC % 0.1 Sodium 133 L (139-145) mmol/L Potassium TNP Chloride 109 (101-111) mmol/L Carbon Dioxide 18 L (22-32) mmol/L Anion Gap 6 (2-11) mmol/L BUN 9 (6-24) mg/dL Creatinine 0.51 (0.51-0.95) mg/dL Est GFR ( Amer) 178.6 (>60) Est GFR (Non-Af Amer) 138.9 (>60) BUN/Creatinine Ratio 17.6 (8-20) Glucose 103 H (70-100) mg/dL Lactic Acid 0.7 (0.5-2.0) mmol/L Calcium 7.6 L (8.6-10.3) mg/dL Total Bilirubin 0.90 (0.2-1.0) mg/dL AST TNP ALT 38 (7-52) U/L Alkaline Phosphatase 117 H (34-104) U/L Total Protein 6.3 L (6.4-8.9) g/dL Albumin 3.1 L (3.2-5.2) g/dL Globulin 3.2 (2-4) g/dL Albumin/Globulin Ratio 1.0 (1-3) 05//18 Range/Units 23:25 WBC (3.5-10.8) 10^3/ul RBC (4.0-5.4) 10^6/ul Hgb (12.0-16.0) g/dl Hct (35-47) % MCV (80-97) fL MCH (27-31) pg MCHC (31-36) g/dl RDW (10.5-15) % Plt Count (150-450) 10^3/ul MPV (7.4-10.4) um3 Neut % (Auto) (38-83) % Lymph % (Auto) (25-47) % [place] % (Auto) (0-7) % Eos % (Auto) (0-6) % Baso % (Auto) (0-2) % Absolute Neuts (auto) (1.5-7.7) 10^3/ul Absolute Lymphs (auto) (1.0-4.8) 10^3/ul Absolute Monos (auto) (0-0.8) 10^3/ul Absolute Eos (auto) (0-0.6) 10^3/ul Absolute Basos (auto) (0-0.2) 10^3/ul Absolute Nucleated RBC 10^3/ul Nucleated RBC % Sodium (139-145) mmol/L Potassium 3.8 Chloride (101-111) mmol/L Carbon Dioxide (22-32) mmol/L Anion Gap (2-11) mmol/L BUN (6-24) mg/dL Creatinine (0.51-0.95) mg/dL Est GFR ( Amer) (>60) Est GFR (Non-Af Amer) (>60) BUN/Creatinine Ratio (8-20) Glucose (70-100) mg/dL Lactic Acid (0.5-2.0) mmol/L Calcium (8.6-10.3) mg/dL Total Bilirubin (0.2-1.0) mg/dL AST 26 ALT (7-52) U/L Alkaline Phosphatase (34-104) U/L Total Protein (6.4-8.9) g/dL Albumin (3.2-5.2) g/dL Globulin (2-4) g/dL Albumin/Globulin Ratio (1-3) Result Diagrams: 10/10/17 22:33 10/10/17 23:25 Lab Statement: Any lab studies that have been ordered have been reviewed, and results considered in the medical decision making process. Re-Evaluation - Re-Evaluation First Eval Change: Improved Course/Dx - Course Course Of Treatment: Patient is a recovering addict and states that she relapsed recently. She denies that this area of cellulitis/abscess in the left arm is related to her activity. She relates it to being stuck for blood work. This seems less likely to me however there is definitely evidence for cellulitis. There is perhaps small area of abscess but not a distinct fluid collection seen on bedside ultrasound. I did perform an I&D in the area of most induration and fluid on the ultrasound. I was able to get a small amount of purulence out and obtain a culture. She was given IV clindamycin and blood cultures were obtained. She was admitted to the hospitalist service for further evaluation and treatment. A outline of the cellulitic area on the arm was drawn. - Differential Diagnoses - Skin Complaint Differential Diagnoses: Other - Cellulitis/abscess, IV drug use - Diagnoses Provider Diagnoses: IV drug user, Left arm cellulitis - Physician Notifications Discussed Care Of Patient With: Kady Moreno Time Discussed With Above Provider: 23:25 Instructed by Provider To: Admit As Inpatient Discharge - Sign-Out/Discharge Documenting (check all that apply): Discharge/Admit/Transfer - Discharge Plan Condition: Fair Disposition: ADMITTED TO [facility] Referrals: No Primary Care Phys,NOPCP [Primary Care Provider] - - Billing Disposition and Condition Condition: FAIR Disposition: [facility] [place] The documentation as recorded by the Nirmal garcia Jennifer accurately reflects the service I personally performed and the decisions made by me, Evin Breen MD.
[2017-10-11] MEDS: Morphine VIAL* 4 MG/ML VIAL (1 ml vial) IV PRN ×4 (00:52→15:16)
[2017-10-11] MEDS: NS 0.9% 1000 ML* 1,000 ML IV SCH ×2 (00:53→11:05)
--- NOTE | 2017-10-11 04:24 | HP ---
CC: Jessy Ramsay NP * HISTORY AND PHYSICAL: DATE OF ADMISSION: 10/10/17 PRIMARY CARE PROVIDER: Jessy Ramsay NP at [facility]. CHIEF COMPLAINT: Left arm redness, pain, and swelling. HISTORY OF PRESENT ILLNESS: Ms. Castellanos is a 32-year-old female with a history of IV drug abuse who states that she last injected into her left arm approximately 3 weeks ago. Two weeks ago, she states that she injected into her right arm and has not used anything since. She has a prescription for Suboxone; however, has not been taking this as she states it makes her feel nauseous. The patient states that on the day prior to admission, she developed arm swelling and pain as well as fevers and chills. On the day of admission, the patient had taken a nap and when she woke up she noted that the left antecubital fossa area was markedly red, hot. PAST MEDICAL HISTORY: 1. IV drug abuse. 2. Chronic back pain. 3. Tobacco abuse. PAST SURGICAL HISTORY: 1. Ear tubes. 2. Cholecystectomy. 3. Tonsillectomy and adenoidectomy. 4. x3. 5. Tubal ligation. ALLERGIES: PENICILLIN, CECLOR, BIAXIN, AZITHROMYCIN, CODEINE, DOXYCYCLINE, TRAMADOL, IBUPROFEN, and TYLENOL. FAMILY HISTORY: Mom at the age of 60 of uterine cancer. Dad at the age of 53 of an SD. SOCIAL HISTORY: The patient smokes 3 cigarettes per day and has been smoking for the last 18 years. She denies any alcohol use. She abuses heroine. She is not working. She is not . She has 6 children. She indicates that her healthcare proxy would be her boyfriend Sal Rosenbaum, phone number is [phone]. REVIEW OF SYSTEMS: The patient admits to fevers, chills, and anorexia over the last couple of days. No chest pain. She states that she had some palpitations while Dr. Breen I and D'd a small abscess. Otherwise, she has not had any palpitations. She denies any cough. She denies shortness of breath. No nausea or vomiting. She does admit to chronic abdominal pain, which is unchanged. No diarrhea, no constipation, no hematochezia, no hematuria, no dysuria. No focal weakness. No sensory loss. No sudden changes in vision. No dysphagia. She complains of pain in her arm and back, although the back is chronic. No rashes. She admits to anxiety and depression. PHYSICAL EXAMINATION GENERAL: The patient is a well-developed young female seen lying in the stretcher, in no acute distress. VITAL SIGNS: Blood pressure 117/78, pulse 105, respirations 16, temp 97.4, O2 sat 99% on room air. HEENT: Pupils are equal and round. Extraocular muscle are intact. Oropharynx is clear. Oral mucosa is moist. The patient is edentulous. There is no submandibular, cervical, or supraclavicular adenopathy. PULMONARY: Lungs are clear to auscultation bilaterally. CARDIAC: Normal S1, S2. Heart rate is regular rate and rhythm. There is no lower extremity edema. ABDOMEN: Bowel sounds are present. Abdomen is soft, nontender, and nondistended. MUSCULOSKELETAL: There is full range of motion of the right upper extremity and bilateral lower extremities. Left upper extremity range of motion at the antecubital fossa is limited due to swelling and pain. SKIN: Warm and dry. There are no rashes. There is redness surrounding the antecubital fossa. This is wrapped in gauze as I and D of a small abscess cavity was just performed. I did not take this dressing down completely. NEUROLOGIC: Cranial nerves II through XII are grossly intact. Sensation is intact to light touch throughout. Strength appears to be normal, but limited in the left upper extremity due to pain. PSYCH: The patient is alert. She is oriented x3. Affect appears appropriate. LABORATORY DATA: WBC 12.2, hemoglobin 12.0, hematocrit 37, platelets 323. Sodium 123, potassium 3.8, chloride 109, CO2 of 18, BUN 9, creatinine of 0.51. Glucose 103, lactic acid 0.7, calcium 7.6, bilirubin 0.9, AST 26, ALT 38, alk phos 117, albumin 3.1. ASSESSMENT AND PLAN: Ms. Castellanos is a 32-year-old female with a history of IV drug abuse who presents to the emergency room with complaints of pain, swelling , and redness of the left upper extremity. 1. Cellulitis and abscess of the left upper extremity - antecubital fossa: The patient had a bedside ultrasound performed by Dr. Breen in the emergency room. He found a small abscess cavity which he was able to I and D and pack. This material is sent for cultures and the results of this are pending. The patient does have a history of MRSA from April 2017. She will continue on clindamycin, though I will change it to 600 mg IV q.8 hours. We will monitor for improvement in her erythema and swelling and therefore range of motion of the arm. I will obtain a formal soft tissue ultrasound of the left upper extremity to rule out deeper abscess. 2. Hepatitis C. Of note, the patient underwent testing for hepatitis C on . This is high reactive. The patient will need a referral to Infectious Disease on discharge. Given this positive finding, I have discussed testing for HIV and the patient is agreeable to this. 3. Chronic pain. The patient will have p.r.n. morphine 2 mg IV q.4 hours available for pain. I would be hesitant to increase this any further. She does , however, have limited medications that can be utilized for pain that are nonnarcotic in nature. 4. DVT prophylaxis. According to the Adult Thrombosis Prophylaxis Risk Factor Assessment Guide, the patient has a total risk factor score of 1 making her low risk. Ambulation will be utilized as a DVT prophylaxis. 5. Code status is full. TIME SPENT: 65 minutes were spent admitting this patient. [id number]/[facility] #: [id number] ELSIE
[2017-10-11] MEDS: Clindamycin 600 MG IVPREMIX(* 600 MG/50 ML SDV IV SCH ×2 (06:28→14:59)
--- NOTE | 2017-10-11 10:29 | RAD ---
Indication: IV drug user with soft tissue infection at the LEFT antecubital fossa. Comparison: May 05, 2017 ultrasound. Technique: Ultrasound LEFT antecubital fossa with acoustic window limited due to packing in an open wound. Report: Shallow packed wound visualized. Heterogeneous echogenicity within the subcutaneous tissue plane with hyperemia on Doppler. No loculated abscess collection visualized. No gross abnormality within the subjacent visualized skeletal musculature. IMPRESSION: No loculated abscess collection visualized in the region of soft tissue inflammatory change and packed wound at the LEFT antecubital fossa. Previous loculated abscess collection on the May 05, 2017 exam is no longer visualized. If there is persistent clinical concern consider contrast-enhanced MRI or CT for further assessment.
[2017-10-11] MEDS ORDERED: Ketorolac INJ* 15 MG/ML 1 ML VIAL IV PUSH ONE (11:03)
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
[2017-10-11] MEDS ORDERED: Ketorolac INJ* 30 MG/ML 1 ML VIAL IV PUSH PRN (13:54)
--- NOTE | 2017-10-11 13:59 | PN ---
Subjective Date of Service: 10/11/17 Interval History: Patient was seen and examined at bedside. Reports intermittent left forearm pain , relived with Toradol. Denies fever or chills. Swelling and redness have improved overnight. Seen by ID for consultations. Similar presentation when she had a left antecubital abscess back in 04/2017. Had an I&D with packing done in ED. Ultrasound last night with no evidence of an abscess collection. Beside pain , she has no other new symptoms. Family History: Unchanged from Admission Social History: Unchanged from Admission Past Medical History: Unchanged from Admission Objective Active Medications: Cyclobenzaprine HCl (Flexeril Tab*) 10 mg PO TID PRN PRN Reason: SPASMS Clindamycin HCl/Dextrose (Cleocin 600 Mg Ivpremix(*) Sdv) 600 mg in 50 mls @ 100 mls/hr IV Q8H [facility] Last Admin: 10/11/17 06:28 Dose: 100 mls/hr Sodium Chloride (Ns 0.9% 1000 Ml*) 1,000 mls @ 125 mls/hr IV PER RATE [facility] Last Admin: 10/11/17 11:05 Dose: 125 mls/hr Ketorolac Tromethamine (Toradol Inj*) 30 mg IV PUSH Q6H PRN PRN Reason: PAIN Morphine Sulfate (Morphine Vial*) 2 mg IV Q4H PRN PRN Reason: PAIN - MILD Last Admin: 10/11/17 09:10 Dose: 2 mg Prochlorperazine Edisylate (Compazine Inj*) 10 mg IV Q6H PRN PRN Reason: NAUSEA/VOMITING Vital Signs - 8 hr 10/11/17 10/11/17 10/11/17 06:31 07:48 08:00 Temperature 98.2 F Pulse Rate 80 Respiratory 18 15 16 Rate Blood Pressure 106/56 (mmHg) O2 Sat by Pulse 97 Oximetry 10/11/17 10/11/17 09:10 10:10 Temperature Pulse Rate Respiratory 16 16 Rate Blood Pressure (mmHg) O2 Sat by Pulse Oximetry Oxygen Devices in Use Now: None Appearance: Obese young female, appears healthy and in NAD Eyes: No Scleral Icterus, PERRLA Ears/Nose/Mouth/Throat: Clear Oropharnyx, Mucous Membranes Moist Neck: NL Appearance and Movements; NL JVP, Trachea Midline Respiratory: Symmetrical Chest Expansion and Respiratory Effort, Clear to Auscultation Cardiovascular: NL Sounds; No Murmurs; No JVD, RRR Abdominal: NL Sounds; No Tenderness; No Distention Extremities: No Edema, - - Left forearm with modearte swelling noted at antucubital fossa. A small I&D incision with packing noted. packing removed and wound probed to approx. 1 cm depth, no undermining. Moderae surrounding erythema and induration. Distal pulses intact. Neurological: Alert and Oriented x 3, NL Sensation, NL Muscle Strength and Tone Nutrition: Taking PO's Result Diagrams: 10/10/17 22:33 10/10/17 23:25 Additional Lab and Data: Lab Results 10/10/17 10/10/17 10/10/17 Range/Units 22:33 22:33 22:33 WBC 12.2 H (3.5-10.8) 10^3/ul RBC 4.05 (4.0-5.4) 10^6/ul Hgb 12.0 (12.0-16.0) g/dl Hct 37 (35-47) % MCV 90 (80-97) fL MCH 30 (27-31) pg MCHC 33 (31-36) g/dl RDW 15 (10.5-15) % Plt Count 323 (150-450) 10^3/ul MPV 9.1 (7.4-10.4) um3 Neut % (Auto) 61.8 (38-83) % Lymph % (Auto) 27.2 (25-47) % [place] % (Auto) 6.6 (0-7) % Eos % (Auto) 3.4 (0-6) % Baso % (Auto) 1.0 (0-2) % Absolute Neuts (auto) 7.6 (1.5-7.7) 10^3/ul Absolute Lymphs (auto) 3.3 (1.0-4.8) 10^3/ul Absolute Monos (auto) 0.8 (0-0.8) 10^3/ul Absolute Eos (auto) 0.4 (0-0.6) 10^3/ul Absolute Basos (auto) 0.1 (0-0.2) 10^3/ul Absolute Nucleated RBC 0 10^3/ul Nucleated RBC % 0.1 Sodium 133 L (139-145) mmol/L Potassium TNP Chloride 109 (101-111) mmol/L Carbon Dioxide 18 L (22-32) mmol/L Anion Gap 6 (2-11) mmol/L BUN 9 (6-24) mg/dL Creatinine 0.51 (0.51-0.95) mg/dL Est GFR ( Amer) 178.6 (>60) Est GFR (Non-Af Amer) 138.9 (>60) BUN/Creatinine Ratio 17.6 (8-20) Glucose 103 H (70-100) mg/dL Lactic Acid 0.7 (0.5-2.0) mmol/L Calcium 7.6 L (8.6-10.3) mg/dL Total Bilirubin 0.90 (0.2-1.0) mg/dL AST TNP ALT 38 (7-52) U/L Alkaline Phosphatase 117 H (34-104) U/L Total Protein 6.3 L (6.4-8.9) g/dL Albumin 3.1 L (3.2-5.2) g/dL Globulin 3.2 (2-4) g/dL Albumin/Globulin Ratio 1.0 (1-3) / Range/Units 23:25 WBC (3.5-10.8) 10^3/ul RBC (4.0-5.4) 10^6/ul Hgb (12.0-16.0) g/dl Hct (35-47) % MCV (80-97) fL MCH (27-31) pg MCHC (31-36) g/dl RDW (10.5-15) % Plt Count (150-450) 10^3/ul MPV (7.4-10.4) um3 Neut % (Auto) (38-83) % Lymph % (Auto) (25-47) % [place] % (Auto) (0-7) % Eos % (Auto) (0-6) % Baso % (Auto) (0-2) % Absolute Neuts (auto) (1.5-7.7) 10^3/ul Absolute Lymphs (auto) (1.0-4.8) 10^3/ul Absolute Monos (auto) (0-0.8) 10^3/ul Absolute Eos (auto) (0-0.6) 10^3/ul Absolute Basos (auto) (0-0.2) 10^3/ul Absolute Nucleated RBC 10^3/ul Nucleated RBC % Sodium (139-145) mmol/L Potassium 3.8 Chloride (101-111) mmol/L Carbon Dioxide (22-32) mmol/L Anion Gap (2-11) mmol/L BUN (6-24) mg/dL Creatinine (0.51-0.95) mg/dL Est GFR ( Amer) (>60) Est GFR (Non-Af Amer) (>60) BUN/Creatinine Ratio (8-20) Glucose (70-100) mg/dL Lactic Acid (0.5-2.0) mmol/L Calcium (8.6-10.3) mg/dL Total Bilirubin (0.2-1.0) mg/dL AST 26 ALT (7-52) U/L Alkaline Phosphatase (34-104) U/L Total Protein (6.4-8.9) g/dL Albumin (3.2-5.2) g/dL Globulin (2-4) g/dL Albumin/Globulin Ratio (1-3) Microbiology and Other Data: . Diagnostic Imaging: Patient Name: FIONA MORAN Medical Record#: [id number] Ordering Physician: Kady Moreno DO Acct.#: [id number] : 1985 Age: 32 Sex: F Location: [address] [place] [address] MEDICAL Exam Date: 10/11/17 0700 ADM Status: ADM Fan Order Information: US SOFT TISSUE LIMITED EXT-LT Accession Number: [id number] CPT: 48736 Indication: IV drug user with soft tissue infection at the LEFT antecubital fossa. Comparison: May 05, 2017 ultrasound. IMPRESSION: No loculated abscess collection visualized in the region of soft tissue inflammatory change and packed wound at the LEFT antecubital fossa. Previous loculated abscess collection on the May 05, 2017 exam is no longer visualized. If there is persistent clinical concern consider contrast-enhanced MRI or CT for further assessment. <Electronically signed by Allen Amado MD in [place]> 10/11/17 1026 Dictated By: Allen Amado MD Dictated Date/Time: 10/11/17 1026 Transcribed Date/Time: 10/11/17 1021 Copy to: EKG Data: . Assess/Plan/Problems-Billing Assessment: A 32 y/o female with hx IV drug abuse, who presented to the ED with worsening left arm redness and swelling, found to have cellulitis and was admitted for IV antibiotics and pain management. - Patient Problems (1) Cellulitis of forearm, left Current Visit: Yes Status: Acute Priority: High Comment: - Seems to clinically improve overnight - Wound packing changed, likely to be discharged home with no more packing given shallow wound. - Erythema and induration improving - Pain management - Continue Clindamycin, await C&S results to narrow down Abx selection (2) Hx of intravenous drug use in remission Current Visit: Yes Status: Acute Comment: - Reports last time using 2 weeks ago, on her right forearm - Attends counseling as outpatient (3) Leukocytosis Current Visit: No Status: Acute Comment: - 2/2 arm abcess - Trend WBC's - Follow cultures - Monitor temps, has been afebrile (4) DVT prophylaxis Current Visit: Yes Status: Acute Comment: - Ambulate (5) Full code status Current Visit: Yes Status: Acute Status and Disposition: Inpatient for tonight, anticipate discharge to home tomorrow with PO Abx and wound care plans.
[2017-10-11] MEDS ORDERED: TIZANIDINE 4 MG PO PRN (15:43)
[2017-10-11 18:36] VITALS: BP 106/68
--- NOTE | 2017-10-12 19:17 | DS ---
DISCHARGE SUMMARY: DATE OF ADMISSION: 10/10/17 DATE OF DISCHARGE: 10/11/17 PATIENT OF: Dr. Kady Moreno. ATTENDING HOSPITALIST: Nathan Ryan MD * (DICTATED BY DAVID TRACY) ADMISSION DIAGNOSES: 1. Left arm redness, pain, and swelling. 2. History of drug abuse. 3. Chronic back pain. 4. Tobacco abuse. DISCHARGE DIAGNOSES: 1. Left arm redness, pain, and swelling. 2. History of drug abuse. 3. Chronic back pain. 4. Tobacco abuse. ADMITTING PHYSICIAN: Dr. Moreno. CONSULTATIONS: Dr. Reza Senior. PRIMARY CARE PROVIDER: Jessy Ramsay NP at [facility]. PROCEDURE: None. HISTORY OF PRESENT ILLNESS: Ms. Castellanos is a 32-year-old female with a history of IV drug use who presented to the emergency room last night with complaints of left arm swelling and redness for the past 3 weeks. She reports that her last time using IV drugs was about 2 weeks ago, although she used the right arm , not the left that she presented with her complaints. She had a prescription for Suboxone; however, has not been taking this and she states it makes her feel nauseous. She had similar complaints of left arm swelling and plan and found to have an abscess back in April of last year. She was noted on exam last night to have large area of cellulitis and swelling on the left antecubital fossa. The patient had laboratory workup that revealed mild leukocytosis with white count of 1200. She had an ultrasound that revealed edema of antecubital fossa without any significant abscess collection. The patient underwent an I and D of her abscess in the ED and had some packing. She was admitted overnight for observation and received IV antibiotics. On the following morning, she was doing relatively well, only complained of mild pain that was tolerated using Toradol. She had no fever or tachycardia overnight. She expressed a desire to go home; however, given her exam that revealed consistent swelling and redness of her left antecubital fossa, I advised to stay for another date on IV antibiotics. Her packing was changed and dressing was changed at bedside. Later in the afternoon, the patient desired to leave against medical advice. I presented back to her room and advised to stay for another day given her infection on the left arm and recurrent nature of it. The patient continued to wish to go home tonight and signed all the necessary against medical advice paperwork. She understands the risks involved of leaving including worsening infection of the arm, possible sepsis, disability, or even . I will attempt to call clindamycin to her pharmacy to continue her antibiotics on an oral form. 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 DISCHARGE MEDICATIONS: Include clindamycin 300 mg 4 times a day for 10 days. DISPOSITION: The patient left against medical advice and was aware of all the risks involved with leaving. DAVID TRACY [id number]/[facility] #: [id number] ELSIE
== END 2017-10-11 19:10 | disposition left against medical advice (07) ==
LOC: ED 21:27 → MED 10-11 00:15
PROVIDERS: ADMIT Hospitalist; ATTEND Hospitalist
DX: L03.114 Cellulitis of left upper limb (principal); L02.414 Cutaneous abscess of left upper limb; M79.602 Pain in left arm; M79.89 Other specified soft tissue disorders; M54.9 Dorsalgia, unspecified; G89.29 Other chronic pain; D72.829 Elevated white blood cell count, unspecified; F17.210 Nicotine dependence, cigarettes, uncomplicated; F11.10 Opioid abuse, uncomplicated; Z88.1 Allergy status to other antibiotic agents; Z88.0 Allergy status to penicillin; Z88.8 Allergy status to other drugs, medicaments and biological substances; Z82.49 Family history of ischemic heart disease and other diseases of the circulatory system
CPT/HCPCS: 36415; 80053; 83605; 84702; 85025; 86703; 87040; 87070; 87077; 87186; 87205; 96365; 96366; 96375; 96376; 99284; 99406; G0378; J1885; J2270

== ENCOUNTER → 2018-03-03 02:41 | Emergency (ER) | payer OTHER ==
[~2018-03-03 02:41] MED LIST: Acetaminophen TAB* 325 MG PO ONE; Iohexol 350* (CONTRAST) 500 ML MDV IV ONE; Ketorolac INJ* 30 MG/ML 1 ML VIAL IV PUSH ONE; Levofloxacin 750 MG IVPREMIX(* 750 MG/150 ML BAG IVPB ONE; NS 0.9% 1000 ML*IV.FLUID IV ONE
[2018-03-03 04:06] LABS: ABS Basophils 0 10^3/ul (0-0.2); ABS Eosinophils 0.1 10^3/ul (0-0.6); ABS Lymphocytes 2.6 10^3/ul (1.0-4.8); ABS Monocytes 0.5 10^3/ul (0-0.8); ABS Neutrophils 4.5 10^3/ul (1.5-7.7); ABS Nucleated RBC 0 10^3/ul; Eosinophil % 1.5 % (0-6); Hematocrit 36 % (35-47); Hemoglobin 11.9 g/dl (12.0-16.0); Mean Corpuscular HGB Conc 34 g/dl (31-36); Mean Corpuscular Hemoglobin 30 pg (27-31); Mean Corpuscular Volume 90 fL (80-97); Nucleated Red Blood Cells % 0.1; Platelet Count 167 10^3/ul (150-450); Red Blood Count 3.96 10^6/ul (4.00-5.40); Red Cell Distribution Width 14 % (10.5-15); White Blood Count 7.8 10^3/ul (3.5-10.8)
[2018-03-03 04:15] LABS: INR 0.92 (0.77-1.02)
[2018-03-03 04:52] LABS: Urine Appearance Clear; Urine Blood Negative (Negative); Urine Color Yellow; Urine Ketones Negative (Negative); Urine Protein Negative (Negative); Urine Red Blood Cell Trace(0-2/hpf) (Absent); Urine Specific Gravity 1.009 (1.010-1.030); Urine Urobilinogen Negative (Negative); Urine White Blood Cell Trace(0-5/hpf) (Absent)
--- NOTE | 2018-03-03 05:32 | ED ---
HPI Chest Pain - HPI Summary HPI Summary: Pt is 33 y/o F who presents to ED c/o right sided lower chest pain for 3 days. The pain is exacerbated by movement. Denies nausea or vomiting. - History of Current Complaint Chief Complaint: EDFlankPain Time Seen by Provider: 03/03/18 03:13 Hx Obtained From: Patient Onset/Duration: Started Days Ago, Still Present Current Severity: Severe Pain Intensity: 10 Pain Scale Used: 0-10 Numeric Chest Pain Location: Discrete at: - right lower side Aggravating Factor(s): Movement Associated Signs and Symptoms: Positive: Chest Pain. Negative: Nausea, Vomiting - Additional Pertinent History Primary Care Physician: GINA - Allergy/Home Medications Allergies/Adverse Reactions: Allergies Allergy/AdvReac Type Severity Reaction Status Date / Time acetaminophen [From Tylenol] Allergy Hives Verified 10/10/17 21:50 amoxicillin Allergy Hives Verified 10/10/17 21:47 azithromycin Allergy Hives Verified 10/10/17 21:47 cefaclor [From Ceclor] Allergy Hives Verified 10/10/17 21:48 clarithromycin [From Biaxin] Allergy Hives Verified 10/10/17 21:48 codeine Allergy Hallucinati Verified 10/10/17 21:48 ons doxycycline Allergy Hives Verified 10/10/17 21:48 levofloxacin Allergy Hives Verified 10/10/17 21:49 Penicillins Allergy Hives Verified 10/10/17 21:49 tramadol Allergy Hives Verified 10/10/17 21:50 Home Medications: Home Medications Gabapentin 600 mg PO TID 03/03/18 [History Confirmed 03/03/18] PMH/Surg Hx/FS Hx/Imm Hx Endocrine/Hematology History: Denies: Hx Diabetes Cardiovascular History: Denies: Hx Atrial Fibrillation, Hx Congestive Heart Failure, Hx Hypertension , Hx Myocardial Infarction Respiratory History: Denies: Hx Asthma History: Reports: 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, NO INTERVENTION Denies: Hx Acute Renal Failure, Hx Dialysis Musculoskeletal History: Reports: Other Musculoskeletal History - DDD Denies: Hx Arthritis Sensory History: Denies: Hx Contacts or Glasses, Hx Hearing Aid Opthamlomology History: Denies: Hx Contacts or Glasses - Surgical History Surgery Procedure, Year, and Place: n/a - Immunization History Date of Tetanus Vaccine: utd Date of Influenza Vaccine: none Infectious Disease History: No Infectious Disease History: Denies: Hx Hepatitis, Traveled Outside the [place] in Last 30 Days - Family History Known Family History: Negative: Cardiac Disease, Hypertension, Diabetes, Renal Disease, Respiratory Disease - Social History Alcohol Use: None Hx Substance Use: Yes Substance Use Type: Reports: Heroin Substance Use Comment - Amount & Last Used: pt states last use was 2 weeks ago Hx Tobacco Use: Yes Smoking Status (MU): Light Every Day Tobacco Smoker Type: Cigarettes Review of Systems Positive: Chest Pain Negative: Vomiting, Nausea All Other Systems Reviewed And Are Negative: Yes Physical Exam - Summary Physical Exam Summary: VITAL SIGNS: Reviewed. GENERAL: Patient is a well-developed and nourished female who is lying comfortable in the stretcher. Patient is not in any acute respiratory distress. HEAD AND FACE: No signs of trauma. No ecchymosis, hematomas or skull depressions. No sinus tenderness. EYES: PERRLA, EOMI x 2, No injected conjunctiva, no nystagmus. EARS: Hearing grossly intact. Ear canals and tympanic membranes are within normal limits. MOUTH: Oropharynx within normal limits. NECK: Supple, trachea is midline, no adenopathy, no JVD, no carotid bruit, no c- spine tenderness, neck with full ROM. CHEST: Tenderness right lower chest wall. LUNGS: Clear to auscultation bilaterally. No wheezing or crackles. CVS: Regular rate and rhythm, S1 and S2 present, no murmurs or gallops appreciated ABDOMEN: Soft, non-tender. No signs of distention. No rebound no guarding, and no masses palpated. Bowel sounds are normal. EXTREMITIES: FROM in all major joints, no edema, no cyanosis or clubbing. NEURO: Alert and oriented x 3. No acute neurological deficits. Speech is normal and follows commands. SKIN: Dry and warm Triage Information Reviewed: Yes Vital Signs On Initial Exam: Initial Vitals Pulse BP Pulse Ox 87 102/69 99 03/03/18 02:51 03/03/18 02:51 03/03/18 02:51 Vital Signs Reviewed: Yes Diagnostics - Vital Signs Vital Signs Temp Pulse Resp BP Pulse Ox 03/03/18 04:52 97 03/03/18 03:00 98.1 F 82 22 102/69 98 03/03/18 02:52 83 99 03/03/18 02:51 87 102/69 99 - Laboratory Lab Results: Lab Results 03/03/18 03/03/18 03/03/18 Range/Units 03:58 03:58 03:58 WBC 7.8 (3.5-10.8) 10^3/ul RBC 3.96 L (4.00-5.40) 10^6/ul Hgb 11.9 L (12.0-16.0) g/dl Hct 36 (35-47) % MCV 90 (80-97) fL MCH 30 (27-31) pg MCHC 34 (31-36) g/dl RDW 14 (10.5-15) % Plt Count 167 (150-450) 10^3/ul MPV 9.0 (7.4-10.4) um3 Neut % (Auto) 58.3 (38-83) % Lymph % (Auto) 34.0 (25-47) % [place] % (Auto) 5.9 (0-7) % Eos % (Auto) 1.5 (0-6) % Baso % (Auto) 0.3 (0-2) % Absolute Neuts (auto) 4.5 (1.5-7.7) 10^3/ul Absolute Lymphs (auto) 2.6 (1.0-4.8) 10^3/ul Absolute Monos (auto) 0.5 (0-0.8) 10^3/ul Absolute Eos (auto) 0.1 (0-0.6) 10^3/ul Absolute Basos (auto) 0 (0-0.2) 10^3/ul Absolute Nucleated RBC 0 10^3/ul Nucleated RBC % 0.1 INR (Anticoag Therapy) 0.92 (0.77-1.02) APTT 31.8 (26.0-36.3) seconds D-Dimer, Quantitative 419 H (Less Than 230) ng/mL Sodium 137 (135-145) mmol/L Potassium 3.6 (3.5-5.0) mmol/L Chloride 109 (101-111) mmol/L Carbon Dioxide 23 (22-32) mmol/L Anion Gap 5 (2-11) mmol/L BUN 9 (6-24) mg/dL Creatinine 0.51 (0.51-0.95) mg/dL Est GFR ( Amer) 167.0 (>60) Est GFR (Non-Af Amer) 138.0 (>60) BUN/Creatinine Ratio 17.6 (8-20) Glucose 110 H (70-100) mg/dL Lactic Acid (0.5-2.0) mmol/L Calcium 8.6 (8.6-10.3) mg/dL Total Bilirubin 0.80 (0.2-1.0) mg/dL AST 20 (13-39) U/L ALT 37 (7-52) U/L Alkaline Phosphatase 354 H (34-104) U/L Total Creatine Kinase < 10 L (10-223) U/L Troponin I 0.01 (<0.04) ng/mL C-Reactive Protein 54.45 H (<8.01) mg/L B-Natriuretic Peptide ( - 100) pg/mL Total Protein 6.8 (6.4-8.9) g/dL Albumin 3.3 (3.2-5.2) g/dL Globulin 3.5 (2-4) g/dL Albumin/Globulin Ratio 0.9 L (1-3) Beta HCG, Quant 0.65 mIU/mL Urine Color Urine Appearance Urine pH (5-9) Ur Specific [place] (1.010-1.030) Urine Protein (Negative) Urine Ketones (Negative) Urine Blood (Negative) Urine Nitrate (Negative) Urine Bilirubin (Negative) Urine Urobilinogen (Negative) Ur Leukocyte Esterase (Negative) Urine WBC (Auto) (Absent) Urine RBC (Auto) (Absent) Ur Squamous Epith Cells (Absent) Urine Bacteria (Absent) Urine Glucose (Negative) Influenza A (Rapid) (Negative) Influenza B (Rapid) (Negative) 03/03/18 03/03/18 03/03/18 Range/Units 03:58 03:58 04:35 WBC (3.5-10.8) 10^3/ul RBC (4.00-5.40) 10^6/ul Hgb (12.0-16.0) g/dl Hct (35-47) % MCV (80-97) fL MCH (27-31) pg MCHC (31-36) g/dl RDW (10.5-15) % Plt Count (150-450) 10^3/ul MPV (7.4-10.4) um3 Neut % (Auto) (38-83) % Lymph % (Auto) (25-47) % [place] % (Auto) (0-7) % Eos % (Auto) (0-6) % Baso % (Auto) (0-2) % Absolute Neuts (auto) (1.5-7.7) 10^3/ul Absolute Lymphs (auto) (1.0-4.8) 10^3/ul Absolute Monos (auto) (0-0.8) 10^3/ul Absolute Eos (auto) (0-0.6) 10^3/ul Absolute Basos (auto) (0-0.2) 10^3/ul Absolute Nucleated RBC 10^3/ul Nucleated RBC % INR (Anticoag Therapy) (0.77-1.02) APTT (26.0-36.3) seconds D-Dimer, Quantitative (Less Than 230) ng/mL Sodium (135-145) mmol/L Potassium (3.5-5.0) mmol/L Chloride (101-111) mmol/L Carbon Dioxide (22-32) mmol/L Anion Gap (2-11) mmol/L BUN (6-24) mg/dL Creatinine (0.51-0.95) mg/dL Est GFR ( Amer) (>60) Est GFR (Non-Af Amer) (>60) BUN/Creatinine Ratio (8-20) Glucose (70-100) mg/dL Lactic Acid 1.1 (0.5-2.0) mmol/L Calcium (8.6-10.3) mg/dL Total Bilirubin (0.2-1.0) mg/dL AST (13-39) U/L ALT (7-52) U/L Alkaline Phosphatase (34-104) U/L Total Creatine Kinase (10-223) U/L Troponin I (<0.04) ng/mL C-Reactive Protein (<8.01) mg/L B-Natriuretic Peptide 44 ( - 100) pg/mL Total Protein (6.4-8.9) g/dL Albumin (3.2-5.2) g/dL Globulin (2-4) g/dL Albumin/Globulin Ratio (1-3) Beta HCG, Quant mIU/mL Urine Color Yellow Urine Appearance Clear Urine pH 7.0 (5-9) Ur Specific [place] 1.009 L (1.010-1.030) Urine Protein Negative (Negative) Urine Ketones Negative (Negative) Urine Blood Negative (Negative) Urine Nitrate Negative (Negative) Urine Bilirubin Negative (Negative) Urine Urobilinogen Negative (Negative) Ur Leukocyte Esterase Trace A (Negative) Urine WBC (Auto) Trace(0-5/hpf) (Absent) Urine RBC (Auto) Trace(0-2/hpf) (Absent) Ur Squamous Epith Cells Present A (Absent) Urine Bacteria Absent (Absent) Urine Glucose Negative (Negative) Influenza A (Rapid) (Negative) Influenza B (Rapid) (Negative) 03/03/18 Range/Units 04:59 WBC (3.5-10.8) 10^3/ul RBC (4.00-5.40) 10^6/ul Hgb (12.0-16.0) g/dl Hct (35-47) % MCV (80-97) fL MCH (27-31) pg MCHC (31-36) g/dl RDW (10.5-15) % Plt Count (150-450) 10^3/ul MPV (7.4-10.4) um3 Neut % (Auto) (38-83) % Lymph % (Auto) (25-47) % [place] % (Auto) (0-7) % Eos % (Auto) (0-6) % Baso % (Auto) (0-2) % Absolute Neuts (auto) (1.5-7.7) 10^3/ul Absolute Lymphs (auto) (1.0-4.8) 10^3/ul Absolute Monos (auto) (0-0.8) 10^3/ul Absolute Eos (auto) (0-0.6) 10^3/ul Absolute Basos (auto) (0-0.2) 10^3/ul Absolute Nucleated RBC 10^3/ul Nucleated RBC % INR (Anticoag Therapy) (0.77-1.02) APTT (26.0-36.3) seconds D-Dimer, Quantitative (Less Than 230) ng/mL Sodium (135-145) mmol/L Potassium (3.5-5.0) mmol/L Chloride (101-111) mmol/L Carbon Dioxide (22-32) mmol/L Anion Gap (2-11) mmol/L BUN (6-24) mg/dL Creatinine (0.51-0.95) mg/dL Est GFR ( Amer) (>60) Est GFR (Non-Af Amer) (>60) BUN/Creatinine Ratio (8-20) Glucose (70-100) mg/dL Lactic Acid (0.5-2.0) mmol/L Calcium (8.6-10.3) mg/dL Total Bilirubin (0.2-1.0) mg/dL AST (13-39) U/L ALT (7-52) U/L Alkaline Phosphatase (34-104) U/L Total Creatine Kinase (10-223) U/L Troponin I (<0.04) ng/mL C-Reactive Protein (<8.01) mg/L B-Natriuretic Peptide ( - 100) pg/mL Total Protein (6.4-8.9) g/dL Albumin (3.2-5.2) g/dL Globulin (2-4) g/dL Albumin/Globulin Ratio (1-3) Beta HCG, Quant mIU/mL Urine Color Urine Appearance Urine pH (5-9) Ur Specific [place] (1.010-1.030) Urine Protein (Negative) Urine Ketones (Negative) Urine Blood (Negative) Urine Nitrate (Negative) Urine Bilirubin (Negative) Urine Urobilinogen (Negative) Ur Leukocyte Esterase (Negative) Urine WBC (Auto) (Absent) Urine RBC (Auto) (Absent) Ur Squamous Epith Cells (Absent) Urine Bacteria (Absent) Urine Glucose (Negative) Influenza A (Rapid) Negative (Negative) Influenza B (Rapid) Negative (Negative) Result Diagrams: 03/03/18 03:58 03/03/18 03:58 Lab Statement: Any lab studies that have been ordered have been reviewed, and results considered in the medical decision making process. - Radiology CXR Radiology Interpretation Completed By: ED Physician - No acute processes, pending official report. - CT Chest/Thorax CTA CT Interpretation Completed By: Radiologist - IMPRESSION: Multiple pulmonary nodules. The largest nodule is located in the left lung and measures 1.3 cm in greatest dimension. For low-risk patients recommend follow-up chest CT at 3-6 months. If unchanged consider an additional follow-up CT at 18-24 months. For high-risk patients (smoking history or other known risk factors) initial follow-up chest CT at 3-6 months and if unchanged, 18-24 months. ED Physician reviewed this report. - EKG 03:57 Cardiac Rate: NL - 84 bpm EKG Rhythm: Sinus Rhythm EKG Interpretation: Nonspecific T wave changes EKG Comparison: No Significant Change Chest Pain Course/Dx - Course Course Of Treatment: Pt is 33 y/o F who presents to ED c/o right sided lower chest pain for 3 days. The pain is exacerbated by movement. Denies nausea or vomiting. Physical exam revealed tenderness of right lower chest wall. EKG taken at 03:57 showed sinus at 84 bpm with nonspecific T wave changes. CXR showed no acute processes. Chest CTA revealed multiple pulmonary nodules. Pt diagnosed with chest wall pain and discharged home with pain meds. She was told to follow up with doctor for a CAT scan in 3-6 months of the pulmonary nodules. - Diagnoses Provider Diagnoses: Chest wall pain Discharge - Sign-Out/Discharge Documenting (check all that apply): Patient Departure - Discharge - Discharge Plan Condition: Stable Disposition: HOME Prescriptions: Ibuprofen TAB* [Motrin TAB* 800 MG] 800 mg PO ONCE PRN #30 tab PRN Reason: Pain Patient Education Materials: Chest Wall Pain (ED) Referrals: [facility] [place] [facility] REFERRAL [Outside] Additional Instructions: Follow up with your doctor about pulmonary nodules because you will need another CAT scan in 3-6 months. RETURN TO THE ED FOR ANY NEW OR WORSENING SYMPTOMS. - Attestation Statements Document Initiated by Scribe: Yes Documenting Scribe: Aman Jacob Provider For Whom Scribe is Documenting (Include Credential): Dr. Shola Fraga MD Scribe Attestation: Aman Holley, scribed for Dr. Shola Fraga MD on 03/03/18 at 0733.
--- NOTE | 2018-03-03 06:52 | RAD ---
EXAM: CT Angiography Chest With Intravenous Contrast CLINICAL HISTORY: 33 years old, female; Pain; Chest pain; Type not specified; Additional info: Pe TECHNIQUE: Axial computed tomographic angiography images of the chest with intravenous contrast using pulmonary embolism protocol. All CT scans at this facility use at least one of these dose optimization techniques: automated exposure control; mA and/or kV adjustment per patient size (includes targeted exams where dose is matched to clinical indication); or iterative reconstruction. MIP reconstructed images were created and reviewed. Coronal and sagittal reformatted images were created and reviewed. CONTRAST: 72 mL of OMNI 350 administered intravenously. COMPARISON: No relevant prior studies available. FINDINGS: Pulmonary arteries: No evidence of palmar embolic disease. Aorta: The thoracic aorta shows no evidence of an aneurysm or dissection. Lungs: No pulmonary consolidation. Soft tissue nodule located in the left upper lung. This is seen on series 2 image 54. This nodule measures 1.3 cm in width and 1.1 cm in AP length. This is a solid nodule without calcification. Other nodules are scattered throughout the lung parenchyma. Pleural space: No evidence of pleural effusion or pneumothorax. Heart: Unremarkable. No cardiomegaly. No significant pericardial effusion. No evidence of RV dysfunction. Bones/joints: The thoracic cage is intact. A sclerotic lesion is seen in one of the lower thoracic vertebral bodies. This may represent a bone island. No acute fracture. No dislocation. Soft tissues: Unremarkable. Lymph nodes: Right calcified hilar lymph node. IMPRESSION: Multiple pulmonary nodules. The largest nodule is located in the left lung and measures 1.3 cm in greatest dimension. For low-risk patients recommend follow-up chest CT at 3-6 months. If unchanged consider an additional follow-up CT at 18-24 months. For high-risk patients (smoking history or other known risk factors) initial follow-up chest CT at 3-6 months and if unchanged, 18-[address] [facility] with a general question: [facility] - [phone] For direct physician to physician contact: Physician Hotline - [phone] [facility] ([facility] Facility ID #[id number])
[2018-03-03 07:44] VITALS: BP 135/87
--- NOTE | 2018-03-03 08:49 | RAD ---
Indication: Chest pain. Single frontal view of the chest performed at 0358 hours was reviewed. No priors are available. No mediastinal shift is noted. Heart is of normal size and configuration. Lung hartley appear clear. IMPRESSION: NO ACTIVE CARDIOPULMONARY DISEASE IS NOTED. R0
--- NOTE | 2018-03-03 15:31 | PN ---
Progress Note - Progress Note Date of Service: 03/03/18 Note: Results of blood cultures show gram-positive in clusters resembling staph Patient is called at 3:30 PM to make aware of results and to return to the ED While patient is complaining of right-sided rib pain, she denies any other symptoms including shortness of breath, chest pain, fevers, sweats, chills She states she is feeling otherwise well I have again stated if she develops any symptoms, to return to the ED immediately and she states she understands
--- NOTE | 2018-03-05 07:10 | PN ---
Progress Note - Progress Note Date of Service: 03/05/18 Note: patient was contact by mert per notes about results. attempted to call patient again as got back urine and shows staph in urine and in blood culture so patient should return for repeat testing. placed call on 03/05 0700 and unable to leave voicemail. will send letter and call again. call placed again at 0945 and still no responds.
== END | disposition home or self-care (01) ==
LOC: ED 02:41
DX: R07.89 Other chest pain (principal); Z87.442 Personal history of urinary calculi; F17.210 Nicotine dependence, cigarettes, uncomplicated; R91.8 Other nonspecific abnormal finding of lung field
CPT/HCPCS: 36415; 71045; 71275; 80053; 81003; 81015; 82550; 83605; 83880; 84484; 84702; 85025; 85379; 85610; 85730; 86140; 87040; 87077; 87086; 87150; 87186; 87205; 93005; 96361; 96374; 96375; 99282; A9270-GY; J1885; Q9967

== ENCOUNTER 2019-06-03 16:25 | Emergency (ER) | payer OTHER ==
[2019-06-03] MEDS ORDERED: NS 0.9% 1000 ML** 1,000 ML IV ONE (20:37)
--- NOTE | 2019-06-03 20:55 | ED ---
Complex/Multi-Sys Presentation - HPI Summary HPI Summary: 34-year-old female presents with potential frostbite for the past 4 days. States that she had blisters to the area. She is a pleasant a popping. States she's been outside the past 4 days and has been wandering around. She states this continues to shoot up heronin. She states she has history of endocarditis and pneumonia. She states is starting to get cough. She states that she just feels off. Denies any fevers. She states that she's been having chills. She denies any headache. No neck stiffness. No abdominal pain. No nausea or vomiting. She denies any urinary symptoms. She denies any abscesses. Has history of MRSA. - History Of Current Complaint Chief Complaint: EDGeneral Time Seen by Provider: 06/03/19 20:29 - Allergies/Home Medications Allergies/Adverse Reactions: Allergies Allergy/AdvReac Type Severity Reaction Status Date / Time acetaminophen [From Tylenol] Allergy See Comment Verified 03/23/18 14:19 amoxicillin Allergy Hives Verified 03/23/18 14:19 azithromycin Allergy Hives Verified 03/23/18 14:19 cefaclor [From Ceclor] Allergy Hives Verified 03/23/18 14:19 clarithromycin [From Biaxin] Allergy Hives Verified 03/23/18 14:19 codeine Allergy Hallucinati Verified 03/23/18 14:19 ons doxycycline Allergy Hives Verified 03/23/18 14:19 levofloxacin Allergy Hives Verified 03/23/18 14:19 Penicillins Allergy Hives Verified 03/23/18 14:19 tramadol Allergy Hives Verified 03/23/18 14:19 Home Medications: Home Medications Gabapentin CAP(*) [Neurontin 400 mg CAP(*)] 800 mg PO TID 06/03/19 [History Confirmed 06/03/19] tiZANidine TAB* [Zanaflex TAB*] 4 mg PO Q6HR PRN 06/03/19 [History Confirmed ] PMH/Surg Hx/FS Hx/Imm Hx Endocrine/Hematology History: Denies: Hx Diabetes Cardiovascular History: Denies: Hx Atrial Fibrillation, Hx Congestive Heart Failure, Hx Hypertension , Hx Myocardial Infarction Respiratory History: Reports: Hx Asthma Comment Only: Other Respiratory Problems/Disorders - pulmonary nodules GI History: Comment Only: Other GI Disorders - acid reflux History: Reports: 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, NO INTERVENTION Denies: Hx Acute Renal Failure, Hx Dialysis Comment Only: Other Problems/Disorders - pyelonephritis Musculoskeletal History: Reports: Other Musculoskeletal History - DDD Denies: Hx Arthritis Sensory History: Denies: Hx Contacts or Glasses, Hx Hearing Aid Opthamlomology History: Denies: Hx Contacts or Glasses Psychiatric History: Reports: Hx Anxiety, Hx Depression - Surgical History Surgery Procedure, Year, and Place: x 3, cholecestectomy - Immunization History Date of Tetanus Vaccine: utd Date of Influenza Vaccine: none Infectious Disease History: Yes Infectious Disease History: Reports: Hx of Known/Suspected MRSA Denies: Hx Hepatitis, Traveled Outside the [place] in Last 30 Days - Family History Known Family History: Negative: Cardiac Disease, Hypertension, Diabetes, Renal Disease, Respiratory Disease - Social History Alcohol Use: None Hx Substance Use: Yes Substance Use Type: Reports: Heroin Substance Use Comment - Amount & Last Used: back to the same Hx Tobacco Use: Yes Smoking Status (MU): Light Every Day Tobacco Smoker Type: Cigarettes Review of Systems Positive: Chills. Negative: Fever Negative: Chest Pain Positive: Shortness Of Breath, Cough Positive: Rash All Other Systems Reviewed And Are Negative: Yes Physical Exam Triage Information Reviewed: Yes Vital Signs On Initial Exam: Initial Vitals Temp Pulse Resp BP Pulse Ox 99.3 F 88 18 120/85 98 06/03/19 16:27 06/03/19 16:27 06/03/19 16:27 06/03/19 16:27 06/03/19 16:27 Vital Signs Reviewed: Yes Appearance: Positive: Well-Appearing Skin: Positive: Warm, Dry, Other - warm erythematous rash to bilateral legs Head/Face: Positive: Normal Head/Face Inspection Eyes: Positive: Normal, Conjunctiva Clear ENT: Positive: Pharynx normal Respiratory/Lung Sounds: Positive: Clear to Auscultation, Breath Sounds Present Cardiovascular: Positive: Normal, RRR Abdomen Description: Positive: Nontender, Soft Bowel Sounds: Positive: Present Musculoskeletal: Positive: Normal Neurological: Positive: Normal Psychiatric: Positive: Normal Procedures - Sedation Patient Received Moderate/Deep Sedation with Procedure: No Diagnostics - Vital Signs Vital Signs Temp Pulse Resp BP Pulse Ox 06/03/19 20:15 98.7 F 74 18 131/100 98 06/03/19 18:22 99.2 F 60 18 120/91 100 06/03/19 16:27 99.3 F 88 18 120/85 98 - Laboratory Result Diagrams: 06/03/19 21:50 06/03/19 21:50 Lab Statement: Any lab studies that have been ordered have been reviewed, and results considered in the medical decision making process. - Radiology chest Radiology Interpretation Completed By: ED Physician Summary of Radiographic Findings: no active disease Complex Multi-Symp Course/Dx Course Of Treatment: 34-year-old female presents with potential frostbite for the past 4 days. States that she had blisters to the area. She is a pleasant a popping. States she's been outside the past 4 days and has been wandering around. She states this continues to shoot up heronin. She states she has history of endocarditis and pneumonia. She states is starting to get cough. She states that she just feels off. Denies any fevers. She states that she's been having chills. She denies any headache. No neck stiffness. No abdominal pain. No nausea or vomiting. She denies any urinary symptoms. She denies any abscesses. Has history of MRSA. On exam has some erythema to bilateral legs that is warm to the touch. Does not really appear like cellulitis or like a frostbite. Lungs are clear to auscultation. wbc normal. CRP normal. Chest x- ray no definitive infiltrate but with history will place on Bactrim. Told follow [facility] with [facility]. Patient understands and agrees the plan. - Diagnoses Differential Diagnoses/HQI/PQRI: Metabolic Abnormality, Sepsis, Urinary Tract Infection Provider Diagnoses: Cough, Rash Discharge ED - Sign-Out/Discharge Documenting (check all that apply): Patient Departure - Discharge Plan Condition: Good Disposition: HOME Prescriptions: Sulfamethox/Trimethoprim DS* [Bactrim DS 800/160 TAB*] 1 tab PO BID #9 tab Forms: *Gen. Provider Communication Referrals: Jessy Ramsay NP [Primary Care Provider] - Additional Instructions: xray shows potential pneumonia will treat with bactrim twice a day for 5 days Follow up with primary within 5 days Return to ED if develop any new or worsening symptoms - Billing Disposition and Condition Condition: GOOD Disposition: Home
[2019-06-03 22:08] LABS: Hematocrit 36 % (35-47); Hemoglobin 11.9 g/dL (12.0-16.0); Mean Corpuscular HGB Conc 33 g/dL (31-36); Mean Corpuscular Hemoglobin 28 pg (27-31); Mean Corpuscular Volume 85 fL (80-97); Mean Platelet Volume 8.2 fL (7.4-10.4); Platelet Count 418 10^3/uL (150-450); Red Blood Count 4.23 10^6 /uL (3.70-4.87); Red Cell Distribution Width 15 % (10-15); White Blood Count 7.3 10^3/uL (3.5-10.8)
[2019-06-03 22:15] LABS: ALT 13 U/L (7-52); AST 12 U/L (13-39); Albumin 3.6 g/dL (3.2-5.2); Albumin/Globulin Ratio 1.1 (1-3); Alkaline Phosphatase 93 U/L (34-104); Anion Gap 7 mmol/L (2-11); BUN/Creatinine Ratio 12.3 (8-20); Blood Urea Nitrogen 7 mg/dL (6-24); C Reactive Protein 7.84 mg/L (<8.01); CO2 Carbon Dioxide 22 mmol/L (22-32); Chloride 109 mmol/L (101-111); EGFR African American 146.1 (>60); EGFR Non-African American 120.7 (>60); Globulin 3.2 g/dL (2-4); Glucose 96 mg/dL (70-100); Potassium 3.7 mmol/L (3.5-5.0); Sodium 138 mmol/L (135-145); Total Protein 6.8 g/dL (6.4-8.9)
[2019-06-03 22:21] LABS: HCG Pregnancy < 0.60 mIU/mL
[2019-06-03 22:41] LABS: ABS Basophils 0.1 10^3/ul (0-0.2); ABS Eosinophils 0.5 10^3/ul (0-0.6); ABS Lymphocytes 3.7 10^3/ul (1.0-4.8); ABS Monocytes 0.5 10^3/ul (0-0.8); ABS Neutrophils 2.4 10^3/ul (1.5-7.7); Lymphocyte % 51.4 %; Nucleated Red Blood Cells % 0.1
[2019-06-03 23:11] LABS: Influenza A Molecular NEGATIVE (Negative); Influenza B Molecular NEGATIVE (Negative)
[2019-06-03] MEDS ORDERED: Sulfamethox/Trimethoprim DS 800/160* TAB PO ONE (23:31)
[2019-06-04 00:20] VITALS: BP 133/82
== END 2019-06-04 00:18 | disposition home or self-care (01) ==
LOC: ED 16:25
DX: R05 Cough (principal); R21 Rash and other nonspecific skin eruption; R06.02 Shortness of breath; F17.210 Nicotine dependence, cigarettes, uncomplicated
CPT/HCPCS: 36415; 71046; 80053; 83605; 84702; 85025; 85060; 86140; 87040; 96360; 99284; A9270-GY

== ENCOUNTER 2023-08-25 23:37 | Inpatient (IN) ==
[2023-08-26 02:54] LABS: High Sens Troponin Baseline 4 pg/mL (<15)
[2023-08-26 03:22] LABS: ALT 9 U/L (7-52); AST 17 U/L (13-39); Albumin/Globulin Ratio 0.6 (1-3); Alkaline Phosphatase 172 U/L (35-149); Anion Gap 6 mmol/L (2-16); Blood Urea Nitrogen 15 mg/dL (6-24); C Reactive Protein 114.03 mg/L (<8.01); CO2 Carbon Dioxide 24 mmol/L (22-32); Calcium 8.3 mg/dL (8.6-10.3); Chloride 104 mmol/L (101-111); Creatinine, Serum 0.59 mg/dL (0.51-0.95); Globulin 4.8 g/dL (2-4); Glucose 106 mg/dL (70-100); Lipase 20 U/L (11.0-82.0); Potassium 3.7 mmol/L (3.5-5.0); Sodium 134 mmol/L (135-145); Total Bilirubin 0.4 mg/dL (0.2-1.0); Total Protein 7.8 g/dL (6.4-8.9); eGFR CKD-EPI 117.5 (>60)
[2023-08-26 03:27] LABS: Hematocrit 22.8 % (35-45); Hemoglobin 7.7 g/dL (11.5-14.3); Mean Corpuscular Hemoglobin 24.8 pg (27-33); Mean Corpuscular Hgb Conc 33.6 g/dL (31-36); Mean Platelet Volume 7.7 fL (7.5-11.2); Platelet Count 375 10^3/uL (150-450); Red Blood Count 3.09 10^6/uL (3.63-4.92); Red Cell Distribution Width 18.7 % (12-17); White Blood Count 6.3 10^3/uL (3.8-11.8)
[2023-08-26 03:28] LABS: ABS Eosinophils 0.1 10^3/uL (0.0-0.5); ABS Lymphocytes 1.3 10^3/uL (1.0-4.8); ABS Monocytes 0.4 10^3/uL (0.0-0.9); ABS Neutrophils 4.4 10^3/uL (1.5-7.6); ABS Nucleated RBC 0.01 10^3/ul; Anisocytosis 1+; Eosinophil % 2.2 %; Lymphocyte % 21.1 %; Microcytosis 1+; Nucleated Red Blood Cells % 0.2 %/100WBC (0.0-0.8)
[2023-08-26 03:30] LABS: HCG Pregnancy < 0.60 mIU/mL
[2023-08-26 03:40] LABS: Erythrocyte Sed Rate 99 mm/Hr (0-19)
[2023-08-26 03:54] LABS: High Sensitivity Troponin 1 Hr 3 pg/mL (<15)
[2023-08-26] MEDS: Acetaminophen IV 1 GM/100ML 1,000 MG/100 ML BAG IV ONE ×2 (05:21→14:18)
[2023-08-26 06:01] LABS: Urine Benzodiazepine Screen Presumptive Positive (None Detect); Urine Cannabinoids Screen None Detected (None Detect); Urine Opiates Screen None Detected (None Detect)
[2023-08-26] MEDS: Vancomycin 1,000 MG in NS 0.9% 250 ml 250 ML IVPB ONE ×2 (06:12→14:18)
[2023-08-26 08:37] LABS: Creatine Kinase 27 U/L (10-223); Magnesium 1.9 mg/dL (1.9-2.7)
[2023-08-26] MEDS: NS 0.9% 1000 ml BAG 1,000 ML IV ONE ×2 (09:26→14:18)
[2023-08-26] MEDS: Morphine 4 MG/ML VIAL (1 ml) IV ONE ×2 (09:26→11:54)
[2023-08-26] MEDS: Gadoteridol (CONTRAST) 279.3 MG/ML 10 ML IV ONE (12:52)
[2023-08-26] MEDS ORDERED: Lactated Ringers 1000 ml BAG 1,000 ML IV SCH (14:00)
[2023-08-26] MEDS: Iohexol 350 (CONTRAST) 500 ML MDV IV ONE (15:05)
[2023-08-26 16:15] LABS: Urine Appearance Clear; Urine Bilirubin Negative (Negative); Urine Blood Trace (Negative); Urine Color Yellow; Urine Glucose Negative (Negative); Urine Ketones Trace (Negative); Urine Nitrite Negative (Negative); Urine Protein Trace (Negative); Urine Specific Gravity 1.023 (1.002-1.030); Urine Urobilinogen 2+ (Negative)
[2023-08-26 16:24] LABS: Urine Bacteria Absent /HPF (Absent); Urine Red Blood Cell 2+(6-10/hpf) /HPF (0-Trace); Urine Squamous Epithelial Cell Present /HPF (Absent); Urine White Blood Cell 2+(11-20/hpf) /HPF (0-Trace)
[2023-08-26 16:53] LABS: Urine Benzodiazepine Screen Presumptive Positive (None Detect); Urine Buprenorphine Screen None Detected (None Detect); Urine Cannabinoids Screen None Detected (None Detect); Urine Fentanyl Screen Presumptive Positive (None Detect); Urine Hydrocodone Screen None Detected (None Detect); Urine Opiates Screen Presumptive Positive (None Detect)
[2023-08-26] MEDS: HYDROmorphone 1 MG/1 ML SYRINGE IV ONE ×2 (18:54→21:40)
[2023-08-26] MEDS ORDERED: Vancomycin per Pharmacy 1 EA NOTE FOLLOW UP SCH (23:00)
[2023-08-26] MEDS ORDERED: HYDROmorphone 1 MG/1 ML SYRINGE IV SLOW PU PRN (23:05)
[2023-08-26] MEDS: Vancomycin 1000 MG in NS 0.9% 250 ML IVPB SCH (23:12)
[2023-08-26] MEDS: Enoxaparin 40 MG/0.4 ML SYR SUBCUT SCH (23:13)
[2023-08-26] MEDS: Acetaminophen IV 1 GM/100ML 1,000 MG/100 ML BAG IV PRN (23:26)
[2023-08-27 01:28] LABS: ALT 11 U/L (7-52); Albumin 2.7 g/dL (3.2-5.2); Albumin/Globulin Ratio 0.6 (1-3); Alkaline Phosphatase 273 U/L (35-149); Anion Gap 10 mmol/L (2-16); Blood Urea Nitrogen 6 mg/dL (6-24); CO2 Carbon Dioxide 17 mmol/L (22-32); Calcium 7.8 mg/dL (8.6-10.3); Chloride 105 mmol/L (101-111); Creatinine, Serum 0.52 mg/dL (0.51-0.95); Globulin 4.5 g/dL (2-4); Glucose 107 mg/dL (70-100); Sodium 132 mmol/L (135-145); Total Bilirubin 0.7 mg/dL (0.2-1.0); Total Protein 7.2 g/dL (6.4-8.9); eGFR CKD-EPI 121.1 (>60)
[2023-08-27 04:07] LABS: Hepatitis C Antibody Reactive (Negative)
[2023-08-27 05:50] LABS: HIV 4th Generation Preliminary Reactive (Nonreactive)
[2023-08-27] MEDS: Buprenorp/Nalox 8-2 MG FILM SL SCH (14:29)
[2023-08-27] MEDS: Vancomycin Trough Check NOTE FOLLOW UP ONE (14:57)
[2023-08-27] MEDS: Morphine 2 MG/ML SYRINGE IV PRN ×2 (16:30→23:49)
[2023-08-28] MEDS: Vancomycin 1000 MG in NS 0.9% 250 ML IVPB SCH ×2 (04:26→14:40)
[2023-08-28] MEDS: Lidocaine 1% MPF 5 ML VIAL INJ ONE (07:37)
[2023-08-28] MEDS ORDERED: Vancomycin per Pharmacy 1 EA NOTE FOLLOW UP PRN (09:27)
[2023-08-28] MEDS: Morphine 2 MG/ML SYRINGE IV PRN (09:38)
[2023-08-28] MEDS ORDERED: Phenylephrine 40 mcg/mL 10mL (400mcg) SYRINGE ONE (13:00)
[2023-08-28] MEDS ORDERED: Propofol 10 MG/ML 20 ML BTL ONE (13:00)
[2023-08-28] MEDS ORDERED: Lidocaine 1% MPF 2 ML VIAL ONE (13:00)
[2023-08-28 16:35] LABS: Ferritin 102.7 ng/mL (11-307)
[2023-08-28] MEDS: Acetaminophen IV 1 GM/100ML 1,000 MG/100 ML BAG IV PRN (22:11)
[2023-08-29 00:10] LABS: High Sensitivity Troponin 1 Hr 4 pg/mL (<15)
[2023-08-29] MEDS: Morphine 2 MG/ML SYRINGE IV PRN ×3 (04:10→19:53)
[2023-08-29] MEDS ORDERED: Ondansetron 4 mg VIAL 2 MG/ML 2 ml VIAL IV PRN (04:26)
[2023-08-29] MEDS ORDERED: Vancomycin Trough Check NOTE FOLLOW UP ONE (05:30)
[2023-08-29] MEDS: Vancomycin 1000 MG in NS 0.9% 250 ML IVPB ONE (09:13)
[2023-08-29] MEDS: Lidocaine PATCH 5% PATCH TRANSDERM SCH (12:42)
[2023-08-29 16:02] LABS: ABS Basophils 0.1 10^3/uL (0.0-0.1); ABS Lymphocytes 1.5 10^3/uL (1.0-4.8); ABS Monocytes 0.4 10^3/uL (0.0-0.9); ABS Neutrophils 7.1 10^3/uL (1.5-7.6); Eosinophil % 0.3 %; Hematocrit 25.3 % (35-45); Hemoglobin 8.6 g/dL (11.5-14.3); Lymphocyte % 16.9 %; Mean Corpuscular Hemoglobin 24.9 pg (27-33); Mean Corpuscular Hgb Conc 34.1 g/dL (31-36); Mean Corpuscular Volume 73.2 fL (80-97); Mean Platelet Volume 7.9 fL (7.5-11.2); Platelet Count 586 10^3/uL (150-450); Red Blood Count 3.46 10^6/uL (3.63-4.92); Red Cell Distribution Width 18.7 % (12-17); White Blood Count 9.1 10^3/uL (3.8-11.8)
[2023-08-29 16:20] LABS: .Transferrin 127 mg/dL (203-362); Anion Gap 5 mmol/L (2-16); Blood Urea Nitrogen 10 mg/dL (6-24); CO2 Carbon Dioxide 25 mmol/L (22-32); Calcium 7.8 mg/dL (8.6-10.3); Chloride 103 mmol/L (101-111); Creatinine, Serum 0.43 mg/dL (0.51-0.95); Glucose 98 mg/dL (70-100); Magnesium 1.8 mg/dL (1.9-2.7); Sodium 133 mmol/L (135-145); Total Iron Binding Capacity 178 mcg/dL (250-450); Vancomycin Trough 8.5 mcg/mL; eGFR CKD-EPI 126.8 (>60)
[2023-08-29] MEDS: Vancomycin 1,250 MG in NS 0.9% 250 ml 250 ML IVPB SCH (17:47)
[2023-08-29] MEDS: Vancomycin Trough Check NOTE FOLLOW UP ONE (17:47)
[2023-08-30] MEDS: Magnesium Sulfate 2 gm BAG 2 GM/50 ML BAG IVPB ONE (07:48)
[2023-08-31 08:45] LABS: ABS Eosinophils 0.2 10^3/uL (0.0-0.5); ABS Lymphocytes 2.2 10^3/uL (1.0-4.8); ABS Monocytes 0.5 10^3/uL (0.0-0.9); ABS Neutrophils 5.7 10^3/uL (1.5-7.6); ABS Nucleated RBC 0.01 10^3/ul; Eosinophil % 1.9 %; Hematocrit 26.5 % (35-45); Hemoglobin 8.6 g/dL (11.5-14.3); Lymphocyte % 25.6 %; Mean Corpuscular Hemoglobin 24.1 pg (27-33); Mean Corpuscular Hgb Conc 32.6 g/dL (31-36); Mean Corpuscular Volume 73.9 fL (80-97); Mean Platelet Volume 7.5 fL (7.5-11.2); Nucleated Red Blood Cells % 0.1 %/100WBC (0.0-0.8); Platelet Count 642 10^3/uL (150-450); Red Blood Count 3.59 10^6/uL (3.63-4.92); Red Cell Distribution Width 18.7 % (12-17); White Blood Count 8.6 10^3/uL (3.8-11.8)
[2023-08-31 09:20] LABS: Calcium 8.2 mg/dL (8.6-10.3); Creatinine, Serum 0.47 mg/dL (0.51-0.95); Potassium 5.1 mmol/L (3.5-5.0); eGFR CKD-EPI 124.1 (>60)
[2023-08-31] MEDS: Vancomycin Trough Check NOTE FOLLOW UP ONE (10:31)
[2023-08-31 16:45] LABS: HIV-1 Ab Differentiation,P Positive (Negative); HIV-2 Ab Differentiation,P Indeterminate (Negative)
[2023-08-31] MEDS: Vancomycin 1,250 MG in NS 0.9% 250 ml 250 ML IVPB SCH (17:30)
[2023-09-01] MEDS: Vancomycin Trough Check NOTE FOLLOW UP ONE (12:10)
[2023-09-02 06:34] LABS: Hematocrit 30.4 % (35-45); Hemoglobin 9.2 g/dL (11.5-14.3); Mean Corpuscular Hemoglobin 24.1 pg (27-33); Mean Corpuscular Hgb Conc 30.4 g/dL (31-36); Mean Corpuscular Volume 79.4 fL (80-97); Mean Platelet Volume 7.5 fL (7.5-11.2); Platelet Count 357 10^3/uL (150-450); Red Blood Count 3.83 10^6/uL (3.63-4.92); Red Cell Distribution Width 19.4 % (12-17); White Blood Count 4.9 10^3/uL (3.8-11.8)
[2023-09-02 06:53] LABS: ABS Eosinophils 0.1 10^3/uL (0.0-0.5); ABS Monocytes 0.4 10^3/uL (0.0-0.9); ABS Neutrophils 2.4 10^3/uL (1.5-7.6); ABS Nucleated RBC 0.01 10^3/ul; Eosinophil % 2.6 %; Lymphocyte % 40.9 %; Nucleated Red Blood Cells % 0.2 %/100WBC (0.0-0.8)
[2023-09-02 09:22] LABS: Calcium 8.6 mg/dL (8.6-10.3); Creatinine, Serum 0.58 mg/dL (0.51-0.95); Magnesium 1.9 mg/dL (1.9-2.7); Potassium 5.3 mmol/L (3.5-5.0)
[2023-09-02] MEDS ORDERED: Vancomycin Trough Check NOTE FOLLOW UP ONE (09:30)
[2023-09-03 08:39] LABS: HIV-1 RNA (PCR) 51100 copies/mL (Undetected)
[2023-09-03 13:17] LABS: C Reactive Protein 75.79 mg/L (<8.01)
[2023-09-03] MEDS ORDERED: Vancomycin per Pharmacy 1 EA NOTE FOLLOW UP SCH (20:00)
[2023-09-03] MEDS: Vancomycin 1,250 MG in NS 0.9% 250 ml 250 ML IVPB SCH (22:39)
[2023-09-04 12:16] LABS: Hematocrit 23.7 % (35-45); Hemoglobin 7.8 g/dL (11.5-14.3); Mean Corpuscular Hemoglobin 24.5 pg (27-33); Mean Corpuscular Hgb Conc 32.8 g/dL (31-36); Mean Corpuscular Volume 74.7 fL (80-97); Mean Platelet Volume 7.2 fL (7.5-11.2); Platelet Count 469 10^3/uL (150-450); Red Blood Count 3.17 10^6/uL (3.63-4.92); Red Cell Distribution Width 19.1 % (12-17)
[2023-09-04] MEDS: Linezolid 600 MG IVPREMIX(*) 600 MG/300 ML BAG IVPB SCH (12:21)
[2023-09-04 12:52] LABS: Albumin 2.9 g/dL (3.2-5.2); Albumin/Globulin Ratio 0.6 (1-3); Calcium 8.5 mg/dL (8.6-10.3); Creatinine, Serum 0.5 mg/dL (0.51-0.95); Globulin 4.9 g/dL (2-4); Potassium 4.7 mmol/L (3.5-5.0); Total Bilirubin 0.3 mg/dL (0.2-1.0); Total Protein 7.8 g/dL (6.4-8.9); eGFR CKD-EPI 122.3 (>60)
[2023-09-04 14:25] LABS: ABS Eosinophils 0.1 10^3/uL (0.0-0.5); ABS Lymphocytes 1.7 10^3/uL (1.0-4.8); ABS Monocytes 0.2 10^3/uL (0.0-0.9); ABS Nucleated RBC 0.01 10^3/ul; Eosinophil % 1.9 %; Lymphocyte % 42.2 %; Nucleated Red Blood Cells % 0.2 %/100WBC (0.0-0.8)
[2023-09-04 16:28] LABS: Hepatitis B Surface Antigen Nonreactive (Nonreactive)
[2023-09-04] MEDS ORDERED: Enoxaparin 40 MG/0.4 ML SYR SUBCUT SCH (18:00)
[2023-09-04] MEDS: Enoxaparin 40 MG/0.4 ML SYR SUBCUT SCH (20:01)
[2023-09-05] MEDS ORDERED: Vancomycin Trough Check NOTE FOLLOW UP ONE (05:30)
[2023-09-05 05:49] LABS: INR 1.15 (0.83-1.13)
[2023-09-05 06:06] LABS: Albumin 2.8 g/dL (3.2-5.2); Albumin/Globulin Ratio 0.6 (1-3); Calcium 8.4 mg/dL (8.6-10.3); Creatinine, Serum 0.53 mg/dL (0.51-0.95); Globulin 4.6 g/dL (2-4); Magnesium 1.8 mg/dL (1.9-2.7); Potassium 4.8 mmol/L (3.5-5.0); Total Bilirubin 0.2 mg/dL (0.2-1.0); Total Protein 7.4 g/dL (6.4-8.9); eGFR CKD-EPI 120.6 (>60)
[2023-09-05 06:08] LABS: ABS Eosinophils 0.2 10^3/uL (0.0-0.5); ABS Lymphocytes 2.1 10^3/uL (1.0-4.8); ABS Monocytes 0.4 10^3/uL (0.0-0.9); ABS Neutrophils 3.7 10^3/uL (1.5-7.6); Eosinophil % 3.4 %; Hematocrit 23.3 % (35-45); Hemoglobin 7.5 g/dL (11.5-14.3); Lymphocyte % 32.9 %; Mean Corpuscular Hemoglobin 24.2 pg (27-33); Mean Corpuscular Hgb Conc 32.3 g/dL (31-36); Mean Platelet Volume 7.2 fL (7.5-11.2); Platelet Count 440 10^3/uL (150-450); White Blood Count 6.4 10^3/uL (3.8-11.8)
[2023-09-05] MEDS: Magnesium Sulfate 2 gm BAG 2 GM/50 ML BAG IVPB ONE (08:51)
[2023-09-05] MEDS: Gadoteridol (CONTRAST) 279.3 MG/ML 10 ML IV ONE (11:24)
[2023-09-05] MEDS ORDERED: Ondansetron 4 mg VIAL 2 MG/ML 2 ml VIAL IV PRN (13:41)
[2023-09-05] MEDS ORDERED: Naloxone 0.4 mg VIAL 0.4 mg/ml 1 ml VIAL IV PRN (13:41)
[2023-09-05] MEDS ORDERED: fentaNYL 100 mcg/2 ml 50 MCG/ML VIAL IV PRN (13:41)
[2023-09-06 06:50] LABS: INR 1.09 (0.83-1.13)
[2023-09-06 06:54] LABS: ABS Eosinophils 0.2 10^3/uL (0.0-0.5); ABS Lymphocytes 2.3 10^3/uL (1.0-4.8); ABS Monocytes 0.3 10^3/uL (0.0-0.9); ABS Neutrophils 3.1 10^3/uL (1.5-7.6); ABS Nucleated RBC 0.01 10^3/ul; Eosinophil % 3.3 %; Hematocrit 23.3 % (35-45); Hemoglobin 7.7 g/dL (11.5-14.3); Lymphocyte % 39.1 %; Mean Corpuscular Hgb Conc 33.2 g/dL (31-36); Mean Corpuscular Volume 75.2 fL (80-97); Mean Platelet Volume 6.9 fL (7.5-11.2); Nucleated Red Blood Cells % 0.2 %/100WBC (0.0-0.8); Platelet Count 470 10^3/uL (150-450); Red Cell Distribution Width 19.2 % (12-17); White Blood Count 5.9 10^3/uL (3.8-11.8)
[2023-09-06 07:02] LABS: Albumin 2.8 g/dL (3.2-5.2); Albumin/Globulin Ratio 0.6 (1-3); Calcium 8.4 mg/dL (8.6-10.3); Creatinine, Serum 0.5 mg/dL (0.51-0.95); Globulin 4.7 g/dL (2-4); Potassium 4.6 mmol/L (3.5-5.0); Total Bilirubin 0.2 mg/dL (0.2-1.0); Total Protein 7.5 g/dL (6.4-8.9); eGFR CKD-EPI 122.3 (>60)
[2023-09-06 12:01] LABS: % CD3 92 % (58-86); % CD4 17 % (32-64); % CD8 72 % (15-40); 4/8 H/S Ratio 0.2 (>=0.9); Absolute CD45 Count 1.61 thou/mcL (0.82-2.84); CD3 1482 cells/mcL (550-2202); CD4 267 cells/mcL (365-1437); CD8 1165 cells/mcL (171-846)
[2023-09-07 05:12] LABS: ABS Eosinophils 0.2 10^3/uL (0.0-0.5); ABS Lymphocytes 2.8 10^3/uL (1.0-4.8); ABS Monocytes 0.4 10^3/uL (0.0-0.9); ABS Neutrophils 2.9 10^3/uL (1.5-7.6); ABS Nucleated RBC 0.02 10^3/ul; Eosinophil % 3.5 %; Hemoglobin 8.2 g/dL (11.5-14.3); Lymphocyte % 44.3 %; Mean Corpuscular Hemoglobin 24.6 pg (27-33); Mean Corpuscular Hgb Conc 32.7 g/dL (31-36); Mean Corpuscular Volume 75.2 fL (80-97); Mean Platelet Volume 6.8 fL (7.5-11.2); Nucleated Red Blood Cells % 0.3 %/100WBC (0.0-0.8); Platelet Count 479 10^3/uL (150-450); Red Blood Count 3.32 10^6/uL (3.63-4.92); Red Cell Distribution Width 19.7 % (12-17); White Blood Count 6.2 10^3/uL (3.8-11.8)
[2023-09-07] MEDS: Acetaminophen IV 1 GM/100ML 1,000 MG/100 ML BAG IV ONE (05:19)
[2023-09-07 05:56] LABS: Albumin 2.9 g/dL (3.2-5.2); Albumin/Globulin Ratio 0.6 (1-3); Calcium 8.4 mg/dL (8.6-10.3); Creatinine, Serum 0.56 mg/dL (0.51-0.95); Potassium 4.7 mmol/L (3.5-5.0); Total Bilirubin 0.2 mg/dL (0.2-1.0); Total Protein 7.9 g/dL (6.4-8.9)
[2023-09-07] MEDS ORDERED: Midazolam 2 mg/2 ml VIAL 1 mg/ml 2 ml VIAL (2 mg) ONE (10:19)
[2023-09-07] MEDS ORDERED: Lidocaine 2% PF 5 ML VIAL ONE (11:26)
[2023-09-07] MEDS ORDERED: fentaNYL 250 mcg/5 ml 50 MCG/ML 5 ml VIAL (250 MCG) ONE (11:26)
[2023-09-07] MEDS ORDERED: Rocuronium 50 mg VIAL 10 mg/ml 5 ml VIAL (50 mg) ONE (11:26)
[2023-09-07] MEDS ORDERED: Propofol 10 MG/ML 20 ML BTL ONE (11:26)
[2023-09-07] MEDS ORDERED: KETAMINE HCL 10 MG/ML 20 ml VIAL (200 MG) ONE (11:26)
[2023-09-07] MEDS ORDERED: Thrombin 5,000 UNITS 1 APPLIC KIT - topical use - TOPICAL ONE (12:32)
[2023-09-07] MEDS ORDERED: ceFAZolin VIAL VIAL ONE (12:32)
[2023-09-07] MEDS ORDERED: Lidocaine 1% w EPI 1:200,000 SDV 30 ML VIAL ONE (12:32)
[2023-09-07] MEDS ORDERED: Gelfoam Sponge SIZE 100 SPONGE ONE (12:33)
[2023-09-07] MEDS ORDERED: HYDROmorphone 0.5 MG/0.5 ML SYRINGE ONE ×3 (12:49→14:37)
[2023-09-07] MEDS ORDERED: Dexamethasone IV 4 MG/ML VIAL 1 ml VIAL ONE (14:22)
[2023-09-07] MEDS ORDERED: Naloxone 0.4 mg VIAL 0.4 mg/ml 1 ml VIAL IV PRN (15:59)
[2023-09-07] MEDS ORDERED: fentaNYL 100 mcg/2 ml 50 MCG/ML VIAL IV PRN (15:59)
[2023-09-07] MEDS ORDERED: HYDROmorphone 1 MG/1 ML SYRINGE ONE (16:04)
[2023-09-07] MEDS: HYDROmorphone 1 MG/1 ML SYRINGE IV PRN (16:07)
[2023-09-07] MEDS: Lactated Ringers 1000 ml BAG 1,000 ML IV SCH (16:55)
[2023-09-07] MEDS: Buffered Lidocaine 1% SYRIN 1 ml INTRADERM ONE (16:55)
[2023-09-08 05:36] LABS: ABS Basophils 0.1 10^3/uL (0.0-0.1); ABS Lymphocytes 2.6 10^3/uL (1.0-4.8); ABS Monocytes 0.5 10^3/uL (0.0-0.9); ABS Neutrophils 6.5 10^3/uL (1.5-7.6); ABS Nucleated RBC 0.01 10^3/ul; Eosinophil % 0.4 %; Hematocrit 24.2 % (35-45); Lymphocyte % 27.1 %; Mean Corpuscular Hemoglobin 25.2 pg (27-33); Mean Corpuscular Hgb Conc 33.1 g/dL (31-36); Mean Platelet Volume 6.9 fL (7.5-11.2); Nucleated Red Blood Cells % 0.1 %/100WBC (0.0-0.8); Platelet Count 512 10^3/uL (150-450); Red Blood Count 3.19 10^6/uL (3.63-4.92); Red Cell Distribution Width 19.3 % (12-17); White Blood Count 9.7 10^3/uL (3.8-11.8)
[2023-09-08 06:21] LABS: Albumin 2.9 g/dL (3.2-5.2); Albumin/Globulin Ratio 0.6 (1-3); Calcium 7.9 mg/dL (8.6-10.3); Creatinine, Serum 0.54 mg/dL (0.51-0.95); Globulin 4.8 g/dL (2-4); Potassium 5.2 mmol/L (3.5-5.0); Total Bilirubin 0.2 mg/dL (0.2-1.0); Total Protein 7.7 g/dL (6.4-8.9)
[2023-09-08] MEDS: Morphine 2 MG/ML SYRINGE IV PRN (09:50)
[2023-09-09 06:07] LABS: ABS Basophils 0.1 10^3/uL (0.0-0.1); ABS Eosinophils 0.2 10^3/uL (0.0-0.5); ABS Lymphocytes 2.7 10^3/uL (1.0-4.8); ABS Monocytes 0.4 10^3/uL (0.0-0.9); ABS Neutrophils 4.2 10^3/uL (1.5-7.6); Eosinophil % 2.3 %; Hemoglobin 7.8 g/dL (11.5-14.3); Lymphocyte % 36.5 %; Mean Corpuscular Hemoglobin 24.7 pg (27-33); Mean Corpuscular Hgb Conc 32.5 g/dL (31-36); Mean Corpuscular Volume 75.9 fL (80-97); Mean Platelet Volume 6.7 fL (7.5-11.2); Platelet Count 405 10^3/uL (150-450); Red Blood Count 3.16 10^6/uL (3.63-4.92); Red Cell Distribution Width 20.1 % (12-17); White Blood Count 7.5 10^3/uL (3.8-11.8)
[2023-09-09 06:59] LABS: Albumin 2.9 g/dL (3.2-5.2); Albumin/Globulin Ratio 0.6 (1-3); Calcium 8.4 mg/dL (8.6-10.3); Creatinine, Serum 0.58 mg/dL (0.51-0.95); Globulin 4.6 g/dL (2-4); Magnesium 1.8 mg/dL (1.9-2.7); Potassium 4.8 mmol/L (3.5-5.0); Total Bilirubin 0.2 mg/dL (0.2-1.0); Total Protein 7.5 g/dL (6.4-8.9)
[2023-09-09] MEDS: Magnesium Sulfate 2 gm BAG 2 GM/50 ML BAG IVPB ONE (10:07)
[2023-09-10] MEDS: Magnesium Sulfate 2 gm BAG 2 GM/50 ML BAG IVPB ONE (14:02)
[2023-09-10] MEDS: Morphine 2 MG/ML SYRINGE IV PRN (17:43)
[2023-09-11 06:10] LABS: Calcium 8.8 mg/dL (8.6-10.3); Creatinine, Serum 0.62 mg/dL (0.51-0.95); Magnesium 1.9 mg/dL (1.9-2.7); Potassium 4.3 mmol/L (3.5-5.0); eGFR CKD-EPI 116.1 (>60)
[2023-09-11 06:20] LABS: Hematocrit 24.7 % (35-45); Hemoglobin 8.1 g/dL (11.5-14.3); Mean Corpuscular Hemoglobin 25.1 pg (27-33); Mean Corpuscular Hgb Conc 32.8 g/dL (31-36); Mean Corpuscular Volume 76.7 fL (80-97); Mean Platelet Volume 6.7 fL (7.5-11.2); Platelet Count 337 10^3/uL (150-450); Red Blood Count 3.22 10^6/uL (3.63-4.92); Red Cell Distribution Width 21.1 % (12-17); White Blood Count 6.3 10^3/uL (3.8-11.8)
[2023-09-13 06:18] LABS: ABS Eosinophils 0.4 10^3/uL (0.0-0.5); ABS Lymphocytes 2.1 10^3/uL (1.0-4.8); ABS Monocytes 0.5 10^3/uL (0.0-0.9); ABS Neutrophils 2.8 10^3/uL (1.5-7.6); ABS Nucleated RBC 0.01 10^3/ul; Eosinophil % 6.9 %; Hematocrit 24.5 % (35-45); Lymphocyte % 36.8 %; Mean Corpuscular Hemoglobin 25.5 pg (27-33); Mean Corpuscular Hgb Conc 32.7 g/dL (31-36); Mean Platelet Volume 6.7 fL (7.5-11.2); Nucleated Red Blood Cells % 0.2 %/100WBC (0.0-0.8); Platelet Count 302 10^3/uL (150-450); Red Blood Count 3.14 10^6/uL (3.63-4.92); Red Cell Distribution Width 23.1 % (12-17); White Blood Count 5.8 10^3/uL (3.8-11.8)
[2023-09-13 06:36] LABS: C Reactive Protein 23.22 mg/L (<8.01); Calcium 8.3 mg/dL (8.6-10.3); Creatinine, Serum 0.61 mg/dL (0.51-0.95); Potassium 4.1 mmol/L (3.5-5.0); eGFR CKD-EPI 116.6 (>60)
[2023-09-13 10:34] VITALS: BP 102/66
== END 2023-09-13 12:02 | disposition swing bed (61) | DRG 710 ==
LOC: ED 23:37 → EDHOLD 08-26 18:53 → SUATTDRO 08-26 18:53 → MEDTELE 08-27 14:26
PROVIDERS: ADMIT Internal Medicine; ATTEND Internal Medicine

== ENCOUNTER 2023-09-13 14:17 | Inpatient (IN) ==
[2023-09-13] MEDS: Linezolid 600 MG IVPREMIX(*) 600 MG/300 ML BAG IVPB SCH (21:39)
[2023-09-14] MEDS: Morphine 2 MG/ML SYRINGE IV PRN (06:13)
[2023-09-19] MEDS: Ondansetron 4 mg VIAL 2 MG/ML 2 ml VIAL IV PRN (13:52)
[2023-09-20] MEDS: Morphine ER 15 mg TAB ** extended release PO ONE (13:04)
[2023-09-20] MEDS: Enoxaparin 40 MG/0.4 ML SYR SUBCUT SCH (13:06)
[2023-09-20] MEDS: Linezolid 600 MG IVPREMIX(*) 600 MG/300 ML BAG IVPB SCH (14:08)
[2023-09-23 13:08] LABS: ABS Basophils 0.1 10^3/uL (0.0-0.1); ABS Eosinophils 0.5 10^3/uL (0.0-0.5); ABS Lymphocytes 2.6 10^3/uL (1.0-4.8); ABS Monocytes 0.4 10^3/uL (0.0-0.9); ABS Neutrophils 2.1 10^3/uL (1.5-7.6); ABS Nucleated RBC 0.01 10^3/ul; Eosinophil % 9.3 %; Hemoglobin 9.3 g/dL (11.5-14.3); Lymphocyte % 45.5 %; Mean Corpuscular Hemoglobin 25.3 pg (27-33); Mean Corpuscular Volume 79.1 fL (80-97); Mean Platelet Volume 6.6 fL (7.5-11.2); Nucleated Red Blood Cells % 0.1 %/100WBC (0.0-0.8); Platelet Count 297 10^3/uL (150-450); Red Blood Count 3.67 10^6/uL (3.63-4.92); Red Cell Distribution Width 22.8 % (12-17); White Blood Count 5.7 10^3/uL (3.8-11.8)
[2023-09-23 13:35] LABS: Albumin 3.7 g/dL (3.2-5.2); Albumin/Globulin Ratio 0.8 (1-3); CRP High Sensitivity 0.98 mg/L (<2.00); Creatinine, Serum 0.66 mg/dL (0.51-0.95); Globulin 4.4 g/dL (2-4); Potassium 4.6 mmol/L (3.5-5.0); Total Bilirubin 0.3 mg/dL (0.2-1.0); Total Protein 8.1 g/dL (6.4-8.9); eGFR CKD-EPI 114.4 (>60)
[2023-09-24 11:17] VITALS: BP 107/84
== END 2023-09-24 13:20 | disposition home or self-care (01) | DRG 49 ==
LOC: SUATTDRO 14:17 → MEDTELE 14:17
PROVIDERS: ADMIT Internal Medicine; ATTEND Internal Medicine

== ENCOUNTER 2023-11-19 15:33 | Inpatient (IN) ==
[2023-11-19 17:17] LABS: INR 1.22 (0.83-1.13)
[2023-11-19 17:20] LABS: ABS Basophils 0.1 10^3/uL (0.0-0.1); ABS Eosinophils 0.1 10^3/uL (0.0-0.5); ABS Lymphocytes 1.6 10^3/uL (1.0-4.8); ABS Monocytes 0.6 10^3/uL (0.0-0.9); ABS Neutrophils 3.6 10^3/uL (1.5-7.6); Eosinophil % 2.1 %; Hematocrit 30.2 % (35-45); Hemoglobin 9.7 g/dL (11.5-14.3); Lymphocyte % 27.2 %; Mean Corpuscular Hemoglobin 23.8 pg (27-33); Mean Corpuscular Volume 74.3 fL (80-97); Mean Platelet Volume 7.6 fL (7.5-11.2); Nucleated Red Blood Cells % 0.1 %/100WBC (0.0-0.8); Platelet Count 404 10^3/uL (150-450); Red Blood Count 4.07 10^6/uL (3.63-4.92); Red Cell Distribution Width 17.5 % (12-17); White Blood Count 6.1 10^3/uL (3.8-11.8)
[2023-11-19 17:42] LABS: Albumin/Globulin Ratio 0.7 (1-3); C Reactive Protein 74.11 mg/L (<8.01); Calcium 8.4 mg/dL (8.6-10.3); Creatinine, Serum 0.52 mg/dL (0.51-0.95); Globulin 4.1 g/dL (2-4); Potassium 3.1 mmol/L (3.5-5.0); Total Bilirubin 0.5 mg/dL (0.2-1.0); Total Protein 7.1 g/dL (6.4-8.9); eGFR CKD-EPI 121.1 (>60)
[2023-11-19] MEDS ORDERED: Iohexol 350 (CONTRAST) 500 ML MDV IV ONE (18:15)
[2023-11-19 21:02] LABS: Urine Benzodiazepine Screen Presumptive Positive (None Detect); Urine Cannabinoids Screen None Detected (None Detect); Urine Opiates Screen None Detected (None Detect)
[2023-11-19] MEDS: Droperidol 5 MG/2 ML 2 ML VIAL IV ONE (21:22)
[2023-11-19] MEDS: Acetaminophen IV 1 GM/100ML 1,000 MG/100 ML BAG IV ONE (21:22)
[2023-11-19] MEDS: Iohexol 300 (CONTRAST) 10 ML SDV IV ONE (22:31)
[2023-11-20] MEDS: Cefepime 2 GM in Dextrose 2 GM/50 ML BAG IV ONE (01:17)
[2023-11-20 01:20] LABS: Erythrocyte Sed Rate 80 mm/Hr (0-19)
[2023-11-20] MEDS: Clindamycin 900 MG/D5W BAG 900 MG/50 ML BAG IVPB ONE (01:32)
[2023-11-20] MEDS: Vancomycin 1,250 MG in NS 0.9% 250 ml 250 ML IVPB ONE (01:54)
[2023-11-20] MEDS ORDERED: Albuterol HFA INHALER 8 gm MDI INH PRN (04:32)
[2023-11-20] MEDS ORDERED: Vancomycin per Pharmacy 1 EA NOTE FOLLOW UP SCH (05:00)
[2023-11-20] MEDS: Potassium Chlor 20 meq TAB.ER PO ONE (05:27)
[2023-11-20] MEDS: Enoxaparin 40 MG/0.4 ML SYR SUBCUT SCH ×2 (05:27→09:31)
[2023-11-20] MEDS ORDERED: Acetaminophen IV 1 GM/100ML 1,000 MG/100 ML BAG IV PRN (08:01)
[2023-11-20] MEDS ORDERED: Ondansetron 4 mg VIAL 2 MG/ML 2 ml VIAL IV PRN (08:03)
[2023-11-20] MEDS: Vancomycin 1,250 MG in NS 0.9% 250 ml 250 ML IVPB SCH ×2 (09:22→17:14)
[2023-11-20] MEDS: NF: Bictegravir/Emtricit/Tenofov 1 TABLET PO SCH (09:55)
[2023-11-20 11:54] LABS: ABS Basophils 0.1 10^3/uL (0.0-0.1); ABS Eosinophils 0.2 10^3/uL (0.0-0.5); ABS Lymphocytes 1.7 10^3/uL (1.0-4.8); ABS Monocytes 0.6 10^3/uL (0.0-0.9); ABS Neutrophils 3.9 10^3/uL (1.5-7.6); Eosinophil % 3.6 %; Hematocrit 31.7 % (35-45); Hemoglobin 10.5 g/dL (11.5-14.3); Lymphocyte % 25.9 %; Mean Corpuscular Hemoglobin 24.6 pg (27-33); Mean Corpuscular Volume 74.5 fL (80-97); Mean Platelet Volume 7.8 fL (7.5-11.2); Platelet Count 360 10^3/uL (150-450); Red Blood Count 4.26 10^6/uL (3.63-4.92); White Blood Count 6.4 10^3/uL (3.8-11.8)
[2023-11-20 11:57] LABS: Urine Appearance Clear; Urine Bacteria Absent /HPF (Absent); Urine Bilirubin Negative (Negative); Urine Blood Negative (Negative); Urine Color Yellow; Urine Glucose Negative (Negative); Urine Ketones Negative (Negative); Urine Nitrite Negative (Negative); Urine Protein 1+ (>=30 mg/dL) (Negative); Urine Red Blood Cell Trace(0-2/hpf) /HPF (0-Trace); Urine Specific Gravity >1.050 (1.002-1.030); Urine Squamous Epithelial Cell Present /HPF (Absent); Urine Urobilinogen Negative (Negative); Urine White Blood Cell Trace(0-5/hpf) /HPF (0-Trace); Urine pH 7.5 (5.0-8.0)
[2023-11-20 12:17] LABS: Calcium 8.4 mg/dL (8.6-10.3); Creatinine, Serum 0.45 mg/dL (0.51-0.95); Magnesium 1.7 mg/dL (1.9-2.7); Potassium 3.6 mmol/L (3.5-5.0); eGFR CKD-EPI 125.4 (>60)
[2023-11-20] MEDS: Cefepime 2 GM in Dextrose 2 GM/50 ML BAG IV SCH (13:20)
[2023-11-20] MEDS ORDERED: Senna TAB 8.6 mg TAB PO PRN (15:18)
[2023-11-20] MEDS: Sulfur Hexaflouride MICROSPHR 25 MG VIAL IV ONE (15:23)
[2023-11-20] MEDS ORDERED: LORazepam 2 mg VIAL 1 ml IV PUSH ONE (17:43)
[2023-11-20] MEDS ORDERED: Lorazepam PYXIS KEY PRN (17:43)
[2023-11-21] MEDS ORDERED: Vancomycin Trough Check NOTE FOLLOW UP ONE (08:30)
[2023-11-21 10:08] VITALS: BP 122/73
[2023-11-21 10:21] LABS: Hematocrit 31.9 % (35-45); Hemoglobin 10.1 g/dL (11.5-14.3); Mean Corpuscular Hemoglobin 23.5 pg (27-33); Mean Corpuscular Hgb Conc 31.8 g/dL (31-36); Red Blood Count 4.31 10^6/uL (3.63-4.92); Red Cell Distribution Width 18.1 % (12-17)
[2023-11-21 10:25] LABS: C Reactive Protein 51.43 mg/L (<8.01); Calcium 8.4 mg/dL (8.6-10.3); Creatinine, Serum 0.51 mg/dL (0.51-0.95); Magnesium 1.8 mg/dL (1.9-2.7); Potassium 3.6 mmol/L (3.5-5.0); Vancomycin Trough 16.2 mcg/mL; eGFR CKD-EPI 121.7 (>60)
[2023-11-21 11:01] LABS: ABS Eosinophils 0.3 10^3/uL (0.0-0.5); ABS Lymphocytes 1.8 10^3/uL (1.0-4.8); ABS Monocytes 0.6 10^3/uL (0.0-0.9); ABS Nucleated RBC 0.01 10^3/ul; Eosinophil % 4.6 %; Lymphocyte % 32.4 %; Mean Platelet Volume 7.4 fL (7.5-11.2); Nucleated Red Blood Cells % 0.1 %/100WBC (0.0-0.8); Platelet Count 332 10^3/uL (150-450); White Blood Count 5.7 10^3/uL (3.8-11.8)
== END 2023-11-21 11:15 | disposition left against medical advice (07) | DRG 344 ==
LOC: ED 15:33 → EDHOLD 15:33 → SUATTDRO 11-20 02:32 → MED 11-20 03:58
PROVIDERS: ADMIT Hospitalist; ATTEND Student in an Organized Health Care Education/Training Program

== ENCOUNTER 2024-06-07 21:30 | Inpatient (IN) ==
[2024-06-07] MEDS: Cefepime 2 GM in Dextrose 2 GM/50 ML BAG IV ONE (22:56)
[2024-06-07 22:57] LABS: ABS Basophils 0.1 10^3/uL (0.0-0.1); ABS Lymphocytes 1.6 10^3/uL (1.0-4.8); ABS Monocytes 0.5 10^3/uL (0.0-0.9); Eosinophil % 0.5 %; Hematocrit 35.1 % (35-45); Hemoglobin 11.7 g/dL (11.5-14.3); Lymphocyte % 15.8 %; Mean Corpuscular Hemoglobin 26.9 pg (27-33); Mean Corpuscular Hgb Conc 33.3 g/dL (31-36); Mean Corpuscular Volume 80.8 fL (80-97); Platelet Count 289 10^3/uL (150-450); Red Blood Count 4.35 10^6/uL (3.63-4.92); Red Cell Distribution Width 16.1 % (12-17); White Blood Count 10.4 10^3/uL (3.8-11.8)
[2024-06-07 23:30] LABS: ALT 46 U/L (7-52); AST 40 U/L (13-39); Albumin/Globulin Ratio 0.9 (1-3); Alkaline Phosphatase 176 U/L (35-149); Anion Gap 6 mmol/L (2-16); Blood Urea Nitrogen 14 mg/dL (6-24); CO2 Carbon Dioxide 27 mmol/L (22-32); Calcium 9.6 mg/dL (8.6-10.3); Chloride 103 mmol/L (101-111); Creatinine, Serum 0.77 mg/dL (0.51-0.95); Globulin 4.7 g/dL (2-4); Glucose 108 mg/dL (70-100); Potassium 4.5 mmol/L (3.5-5.0); Sodium 136 mmol/L (135-145); Total Bilirubin 0.9 mg/dL (0.2-1.0); Total Protein 8.7 g/dL (6.4-8.9); eGFR CKD-EPI 99.9 (>60)
[2024-06-07 23:37] LABS: HCG Pregnancy < 0.60 mIU/mL
[2024-06-07] MEDS: Vancomycin 1,500 MG in NS 0.9% 250 ml 250 ML IVPB ONE (23:55)
[2024-06-08] MEDS ORDERED: Naloxone Nasal Spray 4 MG/0.1 ML NASAL.SPR INTRANASAL PRN (02:12)
[2024-06-08] MEDS ORDERED: Vancomycin per Pharmacy 1 EA NOTE FOLLOW UP SCH (03:00)
[2024-06-08] MEDS: Morphine 4 MG/ML VIAL (1 ml) IV ONE (03:19)
[2024-06-08 03:53] LABS: Urine Appearance Clear; Urine Bilirubin Negative (Negative); Urine Blood Negative (Negative); Urine Color Yellow; Urine Glucose Negative (Negative); Urine Ketones Negative (Negative); Urine Nitrite Negative (Negative); Urine Protein Trace (Negative); Urine Specific Gravity 1.022 (1.002-1.030); Urine Urobilinogen Negative (Negative)
[2024-06-08 04:15] LABS: Urine Benzodiazepine Screen None Detected (None Detect); Urine Cannabinoids Screen None Detected (None Detect); Urine Opiates Screen Presumptive Positive (None Detect)
[2024-06-08 07:06] LABS: ABS Basophils 0.1 10^3/uL (0.0-0.1); ABS Lymphocytes 1.4 10^3/uL (1.0-4.8); ABS Monocytes 0.4 10^3/uL (0.0-0.9); ABS Neutrophils 8.1 10^3/uL (1.5-7.6); Eosinophil % 0.2 %; Hematocrit 33.1 % (35-45); Hemoglobin 11.2 g/dL (11.5-14.3); Lymphocyte % 14.4 %; Mean Corpuscular Hgb Conc 33.9 g/dL (31-36); Mean Corpuscular Volume 79.6 fL (80-97); Mean Platelet Volume 8.3 fL (7.5-11.2); Platelet Count 278 10^3/uL (150-450); Red Blood Count 4.16 10^6/uL (3.63-4.92)
[2024-06-08 07:36] LABS: Albumin 3.6 g/dL (3.5-5.7); Albumin/Globulin Ratio 0.8 (1-3); C Reactive Protein 62.85 mg/L (<8.01); Calcium 8.5 mg/dL (8.6-10.3); Creatinine, Serum 0.62 mg/dL (0.51-0.95); Globulin 4.3 g/dL (2-4); Potassium 3.8 mmol/L (3.5-5.0); Total Protein 7.9 g/dL (6.4-8.9); eGFR CKD-EPI 115.4 (>60)
[2024-06-08] MEDS: Enoxaparin 40 MG/0.4 ML SYR SUBCUT SCH (09:41)
[2024-06-08] MEDS: Buprenorp/Nalox 8-2 MG FILM SL SCH (09:41)
[2024-06-08] MEDS: NF: Bictegravir/Emtricit/Tenofov 1 TABLET PO SCH (09:44)
[2024-06-08] MEDS ORDERED: Vancomycin 1,500 MG in NS 0.9% 250 ml 250 ML IVPB SCH (12:00)
[2024-06-08] MEDS: cefTRIAXone 2 gm/50 mL D5W 2 GM/50 ML BAG IV SCH (15:08)
[2024-06-09 07:05] LABS: Hematocrit 33.5 % (35-45); Hemoglobin 11.6 g/dL (11.5-14.3); Mean Corpuscular Hemoglobin 27.7 pg (27-33); Mean Corpuscular Hgb Conc 34.6 g/dL (31-36); Mean Platelet Volume 8.1 fL (7.5-11.2); Platelet Count 272 10^3/uL (150-450); Red Blood Count 4.19 10^6/uL (3.63-4.92); Red Cell Distribution Width 16.3 % (12-17); White Blood Count 5.7 10^3/uL (3.8-11.8)
[2024-06-09 07:48] LABS: Albumin 3.6 g/dL (3.5-5.7); Albumin/Globulin Ratio 0.8 (1-3); Calcium 8.6 mg/dL (8.6-10.3); Creatinine, Serum 0.55 mg/dL (0.51-0.95); Globulin 4.3 g/dL (2-4); Magnesium 1.9 mg/dL (1.9-2.7); Potassium 3.7 mmol/L (3.5-5.0); Total Bilirubin 0.6 mg/dL (0.2-1.0); Total Protein 7.9 g/dL (6.4-8.9); eGFR CKD-EPI 118.8 (>60)
[2024-06-09] MEDS ORDERED: Vancomycin Trough Check NOTE FOLLOW UP ONE (11:30)
[2024-06-09] MEDS: cefTRIAXone 2 gm/50 mL D5W 2 GM/50 ML BAG IV SCH (16:18)
[2024-06-10 10:48] VITALS: BP 119/78
== END 2024-06-10 12:10 | disposition home or self-care (01) | DRG 197 ==
LOC: ED 21:30 → SUATTDRO 06-08 01:59 → EDHOLD 06-08 01:59 → SSU 06-08 15:16 → MEDTELE 06-09 18:46
PROVIDERS: ADMIT Internal Medicine; ATTEND Internal Medicine